=== PATIENT | female | born 1995 | race Caucasian/White ===

== ENCOUNTER 2016-11-27 00:11 | Emergency (ER) | payer BC, OTHER ==
[2016-11-27 00:18] VITALS: BP 116/64; PULSE 79; RESP 16; TEMP 97.7
--- NOTE | 2016-11-27 01:13 | ED ---
Lower Extremity Injury HPI - General Chief Complaint: Extremity Injury, Lower Stated Complaint: foot pain Time Seen by Provider: 11/27/16 00:23 Source: patient, RN notes reviewed, old records reviewed Mode of arrival: ambulatory Limitations: no limitations - History of Present Illness Initial Comments: Patient is a 21 year old female with one day of right foot pain after smashing her foot in a fold up chair. She states that she is able to bear weight on it. She states there is bruising over the medial aspect of the foot, she denies any ankle pain, decreased range of motion in her foot or ankle. She denies any previous injury to the right foot. She denies any peripheral parestheisas. Pain is a 4/10 with palpation. She states she put ice on it prior to arriving to ER. - Related Data Home Medications Medication Instructions Recorded Confirmed No Known Home Medications [No 04/07/16 07/24/16 Known Home Medications] Allergies Allergy/AdvReac Type Severity Reaction Status Date / Time cephalexin monohydrate Allergy Nausea & Verified 11/27/16 00:18 [From Keflex] Vomiting venom-honey bee Allergy Unknown Verified 11/27/16 00:18 [bee venom (honey bee)] Review of Systems ROS Statement: Those systems with pertinent positive or pertinent negative responses have been documented in the HPI. ROS Other: All systems not noted in ROS Statement are negative. Past Medical History Past Medical History: Asthma Additional Past Medical History / Comment(s): BACK PAIN, KIDNEY INFECTIONS, HEART MURMUR, ovarian cysts, History of Any Multi-Drug Resistant Organisms: None Reported Past Surgical History: Section Past Psychological History: Anxiety, Bipolar, Depression Smoking Status: Current some day smoker Past Alcohol Use History: None Reported Past Drug Use History: None Reported General Exam - General Exam Comments Initial Comments: Well appearing 21 year old female no distress. Limitations: no limitations General appearance: alert, in no apparent distress Head exam: Present: atraumatic, normocephalic, normal inspection Eye exam: Present: normal appearance, PERRL, EOMI. Absent: scleral icterus, conjunctival injection, periorbital swelling ENT exam: Present: normal exam, mucous membranes moist Neck exam: Present: normal inspection. Absent: tenderness, meningismus, lymphadenopathy Respiratory exam: Present: normal lung sounds bilaterally. Absent: respiratory distress, wheezes, rales, rhonchi, stridor Cardiovascular Exam: Present: regular rate, normal rhythm, normal heart sounds. Absent: systolic murmur, diastolic murmur, rubs, gallop, clicks GI/Abdominal exam: Present: soft, normal bowel sounds. Absent: distended, tenderness, guarding, rebound, rigid Extremities exam: Present: normal inspection, full ROM, normal capillary refill , other (tender to palpation over medial sole of right foot. Patient has no swellng or bruising. ). Absent: tenderness, pedal edema, joint swelling, calf tenderness Back exam: Present: normal inspection Neurological exam: Present: alert, oriented X3, CN II-XII intact Psychiatric exam: Present: normal affect, normal mood Skin exam: Present: warm, dry, intact, normal color. Absent: rash Course Vital Signs 11/27/16 00:14 Temperature 97.7 F Pulse Rate 79 Respiratory 16 Rate Blood Pressure 116/64 O2 Sat by Pulse 100 Oximetry Medical Decision Making - Medical Decision Making Patient is a 21 year old female wiht right foot pain after is smalshed between a folding chair. Xray shows no fracture. Patient is able to bear weight on her foot. Patient given Fer wrap and needs to follow up with ortho if symptoms persist. Return parameters discussed. Advised to elevate, ice, and rest extremity and to take antiinflamatory medication. - Radiology Data Radiology results: report reviewed No fracture or dislocation. Disposition Clinical Impression: Contusion of right foot Disposition: HOME SELF-CARE Condition: Good Instructions: Foot Contusion (ED) Additional Instructions: Patient started take Motrin Tylenol for pain. Apply ice over the area. Return emergency department if any worsening signs or symptoms occur. Follow-up with orthopedic symptoms continue persist. Referrals: Ld Peace DO [Primary Care Provider] - 1-2 days Time of Disposition: 01:13
--- NOTE | 2016-11-27 01:15 | XR ---
Exam: RIGHT FOOT, 3 views INDICATION: 21-year-old female with pain. COMPARISON: None. FINDINGS: 3 views of the right foot are obtained. Bony structures are intact. Bone mineralization is within normal limits. Joint spaces are preserved. Soft tissues within normal limits. No radio-opaque foreign bodies. IMPRESSION: No acute fracture or subluxation identified.
== END 2016-11-27 01:20 | disposition home or self-care (01) ==
LOC: EC 00:11
DX: S90.31XA Contusion of right foot, initial encounter (principal); F17.200 Nicotine dependence, unspecified, uncomplicated; Z88.1 Allergy status to other antibiotic agents; Z91.030 Bee allergy status; W23.0XXA Caught, crushed, jammed, or pinched between moving objects, initial encounter
CPT/HCPCS: 99284

== ENCOUNTER 2017-01-04 02:32 | Emergency (ER) | payer BC, OTHER ==
[2017-01-04 02:44] VITALS: BP 107/65; PULSE 63; RESP 18; TEMP 97.6
== END 2017-01-04 02:55 | disposition home or self-care (01) ==
LOC: EC 02:32
DX: Z02.89 Encounter for other administrative examinations (principal)

== ENCOUNTER 2017-03-13 03:01 | Emergency (ER) | payer SELFPAY ==
[2017-03-13 03:07] VITALS: BP 122/84; PULSE 71; RESP 18; TEMP 98.7
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
--- NOTE | 2017-03-13 03:44 | XR ---
EXAM: XR Right Hand Complete, 3 or More Views CLINICAL HISTORY: Reason: Pain TECHNIQUE: Frontal, lateral and oblique views of the right hand. COMPARISON: No relevant prior studies available. FINDINGS: Bones/joints: Unremarkable. No acute fracture. No dislocation. Soft tissues: Unremarkable. No radiopaque foreign body. IMPRESSION: No significant bone or joint abnormalities.
== END 2017-03-13 03:49 | disposition home or self-care (01) ==
LOC: EC 03:01
DX: S60.221A Contusion of right hand, initial encounter (principal); F17.200 Nicotine dependence, unspecified, uncomplicated; Z88.1 Allergy status to other antibiotic agents; Z91.030 Bee allergy status; W22.09XA Striking against other stationary object, initial encounter
CPT/HCPCS: 99283

== ENCOUNTER 2017-04-04 16:17 | Emergency (ER) | payer OTHER ==
[2017-04-04 16:25] VITALS: BP 123/74; PULSE 63; RESP 18; TEMP 99.9
[2017-04-04] MEDS ORDERED: KETOROLAC 30 MG/ML 1 ML VIAL IVP STA (17:10)
[2017-04-04] MEDS ORDERED: SODIUM CHLORIDE 0.9% 1,000 ML IV STA (17:10)
--- NOTE | 2017-04-04 17:13 | ED ---
General Adult HPI - General Chief complaint: Vaginal Bleeding Stated complaint: Vaginal Bleeding Source: patient, RN notes reviewed Mode of arrival: ambulatory Limitations: no limitations - History of Present Illness Initial comments: 21 yo female presents to the ER with cc of vaginal bleeding. Patient states that she started her menstrual cycle a few days early. Patient states she's had very heavy bleeding. Patient states that she's gone through overnight pads and tampons and hours. Patient states that she is passing large clots with this. Patient states she is having some pelvic cramping with this as well. Patient does admit to history of heavy periods but states nothing this heavy. Patient denies any use of control. Patient states she hasn't had any fever chills with this patient denies any nausea vomiting. Patient states the pain radiates up her back and down the legs. Patient denies any lightheadedness or dizziness. Patient was concerned due to her symptoms so she thought that she should be evaluated. Patient denies any recent fever, chills, shortness of breath, chest pain, back pain, nausea vomiting, numbness or tingling, dysuria or hematuria, constipation or diarrhea, headaches or visual changes, or any other current symptoms. - Related Data Home Medications Medication Instructions Recorded Confirmed No Known Home Medications [No 03/13/17 04/04/17 Known Home Medications] Allergies Allergy/AdvReac Type Severity Reaction Status Date / Time venom-honey bee Allergy Unknown Verified 03/13/17 03:07 [bee venom (honey bee)] cephalexin monohydrate AdvReac Nausea & Verified 04/04/17 17:06 [From Keflex] Vomiting Review of Systems ROS Statement: Those systems with pertinent positive or pertinent negative responses have been documented in the HPI. ROS Other: All systems not noted in ROS Statement are negative. Past Medical History Past Medical History: Asthma Additional Past Medical History / Comment(s): BACK PAIN, KIDNEY INFECTIONS, HEART MURMUR, ovarian cysts, History of Any Multi-Drug Resistant Organisms: None Reported Past Surgical History: Section Past Psychological History: Anxiety, Bipolar, Depression Smoking Status: Current every day smoker Past Alcohol Use History: None Reported, Occasional Past Drug Use History: Marijuana General Exam - General Exam Comments Initial Comments: General: The patient is awake and alert, in no distress, and does not appear acutely ill. Eye: Pupils are equal, round and reactive to light, extra-ocular movements are intact; there is normal conjunctiva bilaterally. No signs of icterus. Ears, nose, mouth and throat: There are moist mucous membranes. Neck: The neck is supple, there is no tenderness. Cardiovascular: There is a regular rate and rhythm. No murmur, rub or gallop is appreciated. Respiratory: Lungs are clear to auscultation, respirations are non-labored, breath sounds are equal. No wheezes, stridor, rales, or rhonchi. Gastrointestinal: Soft, non-distended, non-tender abdomen without masses or organomegaly noted. There is no rebound or guarding present. No CVA tenderness. Bowel sounds are unremarkable. Back: There is no tenderness to palpation in the midline. There is no obvious deformity. No rashes noted. Musculoskeletal: Normal ROM, no tenderness, There is no pedal edema. There is no calf tenderness or swelling. Sensation intact. Pulses equal bilaterally 2+. Neurological: CN II-XII intact, There are no obvious motor or sensory deficits. Coordination appears grossly intact. Speech is normal. Skin: Skin is warm and dry and no rashes or lesions are noted. Psychiatric: Cooperative, appropriate mood & affect, normal judgment. Limitations: no limitations External exam: Present: normal external exam Speculum exam: Present: normal speculum exam, vaginal bleeding (Minimal) By manual exam: Present: normal by manual exam Course Vital Signs 04/04/17 16:20 Temperature 99.9 F H Pulse Rate 63 Respiratory 18 Rate Blood Pressure 123/74 O2 Sat by Pulse 99 Oximetry Medical Decision Making - Medical Decision Making 21-year-old female presents to the emergency department with a chief complaint of vaginal bleeding. At this time patient's pelvic exam essentially increased amount of bleeding and hemoglobin vital signs are stable. This time ultrasound was reviewed and negative. This time we discussed the patient is to follow up with [facility] she is given information. We discussed return parameters and all the questions. She stated that she understood and she is given plan. This time the patient will be discharged. - Lab Data Result diagrams: 04/04/17 17:18 04/04/17 17:18 Lab Results 04/04/17 04/04/17 04/04/17 Range/Units 17:18 17:18 17:18 WBC 8.3 (3.8-10.6) k/uL RBC 4.12 (3.80-5.40) m/uL Hgb 13.6 (11.4-16.0) gm/dL Hct 39.2 (34.0-46.0) % MCV 95.0 (80.0-100.0) fL MCH 33.0 (25.0-35.0) pg MCHC 34.7 (31.0-37.0) g/dL RDW 12.4 (11.5-15.5) % Plt Count 298 (150-450) k/uL Neutrophils % 67 % Lymphocytes % 23 % Monocytes % 4 % Eosinophils % 3 % Basophils % 1 % Neutrophils # 5.6 (1.3-7.7) k/uL Lymphocytes # 1.9 (1.0-4.8) k/uL Monocytes # 0.3 (0-1.0) k/uL Eosinophils # 0.3 (0-0.7) k/uL Basophils # 0.1 (0-0.2) k/uL Sodium 140 (137-145) mmol/L Potassium 3.9 (3.5-5.1) mmol/L Chloride 107 (98-107) mmol/L Carbon Dioxide 25 (22-30) mmol/L Anion Gap 8 mmol/L BUN 15 (7-17) mg/dL Creatinine 0.71 (0.52-1.04) mg/dL Est GFR (MDRD) Af Amer >60 (>60 ml/min/1.73 sqM) Est GFR (MDRD) Non-Af >60 (>60 ml/min/1.73 sqM) Glucose 99 (74-99) mg/dL Calcium 8.9 (8.4-10.2) mg/dL Total Bilirubin 0.6 (0.2-1.3) mg/dL AST 20 (14-36) U/L ALT 17 (9-52) U/L Alkaline Phosphatase 53 (38-126) U/L Total Protein 6.4 (6.3-8.2) g/dL Albumin 3.8 (3.5-5.0) g/dL HCG, Quant <2.4 mIU/mL Urine Color Urine Appearance (Clear) Urine pH (5.0-8.0) Ur Specific [place] (1.001-1.035) Urine Protein (Negative) Urine Glucose (UA) (Negative) Urine Ketones (Negative) Urine Blood (Negative) Urine Nitrite (Negative) Urine Bilirubin (Negative) Urine Urobilinogen (<2.0) mg/dL Ur Leukocyte Esterase (Negative) Urine RBC (0-5) /hpf Urine WBC (0-5) /hpf Ur Squamous Epith Cells (0-4) /hpf Urine Mucus (None) /hpf Blood Type O Positive Blood Type Recheck No Antibody Screen NEGATIVE Spec Expiration Date 04/07/2017231704/04/17 Range/Units 17:18 WBC (3.8-10.6) k/uL RBC (3.80-5.40) m/uL Hgb (11.4-16.0) gm/dL Hct (34.0-46.0) % MCV (80.0-100.0) fL MCH (25.0-35.0) pg MCHC (31.0-37.0) g/dL RDW (11.5-15.5) % Plt Count (150-450) k/uL Neutrophils % % Lymphocytes % % Monocytes % % Eosinophils % % Basophils % % Neutrophils # (1.3-7.7) k/uL Lymphocytes # (1.0-4.8) k/uL Monocytes # (0-1.0) k/uL Eosinophils # (0-0.7) k/uL Basophils # (0-0.2) k/uL Sodium (137-145) mmol/L Potassium (3.5-5.1) mmol/L Chloride (98-107) mmol/L Carbon Dioxide (22-30) mmol/L Anion Gap mmol/L BUN (7-17) mg/dL Creatinine (0.52-1.04) mg/dL Est GFR (MDRD) Af Amer (>60 ml/min/1.73 sqM) Est GFR (MDRD) Non-Af (>60 ml/min/1.73 sqM) Glucose (74-99) mg/dL Calcium (8.4-10.2) mg/dL Total Bilirubin (0.2-1.3) mg/dL AST (14-36) U/L ALT (9-52) U/L Alkaline Phosphatase (38-126) U/L Total Protein (6.3-8.2) g/dL Albumin (3.5-5.0) g/dL HCG, Quant mIU/mL Urine Color Yellow Urine Appearance Cloudy H (Clear) Urine pH 5.5 (5.0-8.0) Ur Specific [place] 1.023 (1.001-1.035) Urine Protein Trace H (Negative) Urine Glucose (UA) Negative (Negative) Urine Ketones Negative (Negative) Urine Blood Moderate H (Negative) Urine Nitrite Positive H (Negative) Urine Bilirubin Negative (Negative) Urine Urobilinogen 2.0 (<2.0) mg/dL Ur Leukocyte Esterase Trace H (Negative) Urine RBC >182 H (0-5) /hpf Urine WBC 7 H (0-5) /hpf Ur Squamous Epith Cells 1 (0-4) /hpf Urine Mucus Rare H (None) /hpf Blood Type Blood Type Recheck Antibody Screen Spec Expiration Date - Radiology Data Radiology results: report reviewed, image reviewed Disposition Clinical Impression: Dysfunctional uterine bleeding Disposition: HOME SELF-CARE Condition: Stable Instructions: Dysfunctional Uterine Bleeding (ED) Additional Instructions: Please use medication as discussed. Please follow up with family doctor if symptoms have not improved over the next two days. Please return to the emergency room if your symptoms increase or worsen or for any other concerns. Referrals: Bindu Liao MD [STAFF PHYSICIAN] - 1-2 days Time of Disposition: 18:56
[2017-04-04 17:32] LABS: Basophils # (A) 0.1 k/uL (0-0.2); Basophils % (A) 1 %; CH 32.7; CHCM 34.6; Eosinophils # (A) 0.3 k/uL (0-0.7); Eosinophils % (A) 3 %; HCT 39.2 % (34.0-46.0); HDW 2.58; HGB 13.6 gm/dL (11.4-16.0); Luc # (Auto) 0.17; Luc % (Auto) 2; Lymphocytes # (A) 1.9 k/uL (1.0-4.8); Lymphocytes % (A) 23 %; MCHC 34.7 g/dL (31.0-37.0); Mean Platelet Volume 6.9; Monocytes # (A) 0.3 k/uL (0-1.0); Monocytes % (A) 4 %; Neutrophils # (A) 5.6 k/uL (1.3-7.7); Neutrophils % (A) 67 %; RBC 4.12 m/uL (3.80-5.40); RDW 12.4 % (11.5-15.5); WBC 8.3 k/uL (3.8-10.6)
[2017-04-04 17:35] LABS: Appearance,Urine Cloudy (Clear); Bilirubin,Urine Negative (Negative); Glucose,Urine (UA) Negative (Negative); Ketones,Urine Negative (Negative); Leukocyte Esterase,Urine Trace (Negative); Mucus,Urine Rare /hpf; Nitrite,Urine Positive (Negative); PH, Urine 5.5 (5.0-8.0); Particle Count 4472; Protein,Urine Trace (Negative); RBC,Urine >182 /hpf (0-5); Specific Gravity,Urine 1.023 (1.001-1.035); Squamous Epithelial Cell,Urine 1 /hpf (0-4); UA Billing (MACRO vs. MICRO) MICRO; WBC,Urine 7 /hpf (0-5)
[2017-04-04 17:43] LABS: ALT 17 U/L (9-52); AST 20 U/L (14-36); Alkaline Phosphatase 53 U/L (38-126); Anion Gap 8 mmol/L; Blood Urea Nitrogen 15 mg/dL (7-17); Calcium 8.9 mg/dL (8.4-10.2); Carbon Dioxide 25 mmol/L (22-30); Chloride 107 mmol/L (98-107); Glucose 99 mg/dL (74-99); Non-African American GFR(MDRD) >60 (>60 ml/min/1.73 sqM); Potassium 3.9 mmol/L (3.5-5.1); Sodium 140 mmol/L (137-145); Total Bilirubin 0.6 mg/dL (0.2-1.3); Total Protein 6.4 g/dL (6.3-8.2)
[2017-04-04 17:58] LABS: HCG,Quantitative Serum <2.4 mIU/mL
--- NOTE | 2017-04-04 18:43 | US ---
EXAMINATION TYPE: US transvaginal DATE OF EXAM: 04/04/2017 COMPARISON: NONE CLINICAL HISTORY: Pain. Abnormal bleeding TECHNIQUE: Transvaginal (TV) Date of LMP: 03/08/2017 EXAM MEASUREMENTS: Uterus: 7.4 x 4.3 x 5.6 cm Endometrial Stripe: 0.63 cm Right Ovary: 4.5 x 2.8 3.1 cm Left Ovary: 4.1 x 2.1 x 2.2 cm 1. Uterus: Retroverted 2. Endometrium: wnl 3. Right Ovary: Anechoic srea seen measuring 4.0 x 2.0 x 2.1cm 4. Left Ovary: wnl Spectral, color and waveform doppler imaging shows good arterial and venous flow within the ovaries ; there is no evidence for ovarian torsion. 5. Bilateral Adnexa: wnl 6. Posterior cul-de-sac: wnl IMPRESSION: No evidence of ovarian torsion. Simple cysts are present on the left and right ovary. The re is a dominant right ovarian cyst. Normal uterus and endometrium.
== END 2017-04-04 19:22 | disposition home or self-care (01) ==
LOC: EC 16:17
DX: N93.8 Other specified abnormal uterine and vaginal bleeding (principal); Z87.42 Personal history of other diseases of the female genital tract; F17.200 Nicotine dependence, unspecified, uncomplicated; Z98.890 Other specified postprocedural states; Z88.1 Allergy status to other antibiotic agents; Z91.030 Bee allergy status
CPT/HCPCS: 36415; 86900; 86901; 80053; 85025; 86850; 81001; 84702; 93975; 76830; 99284; 96374; 96361 ×2; J1885; 76856; 93976

== ENCOUNTER 2017-05-23 21:01 | Emergency (ER) | payer OTHER ==
[2017-05-23] MEDS ORDERED: IPRATROPIUM 0.5 MG/2.5 ML NEBU INHALATION STA (21:41)
[2017-05-23] MEDS ORDERED: SODIUM CHLORIDE 0.9% 1,000 ML IV STA (21:41)
[2017-05-23] MEDS ORDERED: AZITHROMYCIN 500 MG in SODIUM CHLORIDE 0.9% 250 ML IVPB STA (21:41)
[2017-05-23] MEDS ORDERED: methylPREDNISolone SOD SUCCI 125 MG/2 ML VIAL IV STA (21:41)
[2017-05-23] MEDS ORDERED: ALBUTEROL NEBULIZED 2.5 MG/3 ML INHALATION STA (21:41)
[2017-05-23] MEDS ORDERED: SODIUM CHLORIDE 0.9% 500 ML IV STA (21:41)
[2017-05-23] MEDS ORDERED: KETOROLAC 30 MG/ML 1 ML VIAL IVP STA (21:42)
[2017-05-23] MEDS ORDERED: MORPHINE SULFATE 2 MG/ML SYRINGE IVP ONE (21:42)
--- NOTE | 2017-05-23 21:51 | XR ---
EXAMINATION TYPE: XR chest 2V DATE OF EXAM: 05/23/2017 COMPARISON: 04/07/2016 HISTORY: Difficulty breathing TECHNIQUE: Frontal and lateral views of the chest are obtained. FINDINGS: There is no focal air space opacity, pleural effusion, or pneumothorax seen. The cardiac silhouette size is within normal limits. The osseous structures are intact. IMPRESSION: No acute cardiopulmonary process.
[2017-05-23 21:55] LABS: Basophils # (A) 0.1 k/uL (0-0.2); Basophils % (A) 1 %; CH 32.2; CHCM 34.7; Eosinophils # (A) 0.5 k/uL (0-0.7); Eosinophils % (A) 4 %; HCT 40.9 % (34.0-46.0); HDW 2.59; HGB 14.4 gm/dL (11.4-16.0); Luc # (Auto) 0.18; Luc % (Auto) 1; Lymphocytes # (A) 2.1 k/uL (1.0-4.8); Lymphocytes % (A) 17 %; MCH 32.9 pg (25.0-35.0); MCHC 35.3 g/dL (31.0-37.0); MCV 93.3 fL (80.0-100.0); Mean Platelet Volume 6.8; Monocytes # (A) 0.4 k/uL (0-1.0); Monocytes % (A) 4 %; Neutrophils # (A) 9.3 k/uL (1.3-7.7); Neutrophils % (A) 74 %; RBC 4.38 m/uL (3.80-5.40); RDW 12.3 % (11.5-15.5); WBC 12.5 k/uL (3.8-10.6); WBC (Perox) 12.92
[2017-05-23 22:05] LABS: Partial Thromboplastin Time 27.2 sec (22.0-30.0); Prothrombin Time 10.3 sec (9.0-12.0)
[2017-05-23 22:07] LABS: ALT 23 U/L (9-52); AST 22 U/L (14-36); Alkaline Phosphatase 64 U/L (38-126); Anion Gap 11 mmol/L; Blood Urea Nitrogen 15 mg/dL (7-17); Calcium 9.1 mg/dL (8.4-10.2); Carbon Dioxide 20 mmol/L (22-30); Chloride 110 mmol/L (98-107); Glucose 92 mg/dL (74-99); Magnesium 1.8 mg/dL (1.6-2.3); Non-African American GFR(MDRD) >60 (>60 ml/min/1.73 sqM); Sodium 141 mmol/L (137-145); Total Bilirubin 0.5 mg/dL (0.2-1.3); Total Protein 6.9 g/dL (6.3-8.2)
[2017-05-23 22:18] LABS: Creatine Kinase 87 U/L (30-135)
[2017-05-23 22:21] VITALS: RESP 18
[2017-05-23 22:31] LABS: Creatine Kinase MB 0.9 ng/mL (0.0-2.4); Troponin I <0.012 ng/mL (0.000-0.034)
--- NOTE | 2017-05-23 22:31 | ED ---
General Adult HPI - General Chief complaint: Shortness of Breath Stated complaint: Diff Breathing Time Seen by Provider: 05/23/17 21:28 Source: patient, RN notes reviewed, old records reviewed Mode of arrival: ambulatory Limitations: no limitations - History of Present Illness Initial comments: This is a 21-year-old female olio short of breath. Patient has no chest pain. Patient does have increased cough and congestion 2-3 days with. Symptoms are worsening. She has no medications at home and stopped having asthma exacerbations about 2 years ago. Patient admits to continued smoking although minimally. Extremities show she denies sick contacts - Related Data Previous Rx's Medication Instructions Recorded Albuterol Sulfate [Proair Hfa] 1 - 2 puff INHALATION Q4H PRN #1 05/23/17 inhaler Azithromycin [Zithromax Z-pack] 0 mg PO DIRECTED #6 tab 05/23/17 predniSONE 50 mg PO DAILY #5 tab 05/23/17 Allergies Allergy/AdvReac Type Severity Reaction Status Date / Time venom-honey bee Allergy Unknown Verified 05/23/17 21:23 [bee venom (honey bee)] cephalexin monohydrate AdvReac Nausea & Verified 05/23/17 21:23 [From Keflex] Vomiting Review of Systems ROS Statement: Those systems with pertinent positive or pertinent negative responses have been documented in the HPI. ROS Other: All systems not noted in ROS Statement are negative. Past Medical History Past Medical History: Asthma Additional Past Medical History / Comment(s): BACK PAIN, KIDNEY INFECTIONS, HEART MURMUR, ovarian cysts, History of Any Multi-Drug Resistant Organisms: None Reported Past Surgical History: Section Past Psychological History: Anxiety, Bipolar, Depression Smoking Status: Current every day smoker Past Alcohol Use History: Occasional Past Drug Use History: None Reported General Exam Limitations: no limitations General appearance: alert, in no apparent distress Head exam: Present: atraumatic, normocephalic, normal inspection Eye exam: Present: normal appearance, PERRL, EOMI. Absent: scleral icterus, conjunctival injection, periorbital swelling ENT exam: Present: normal exam, mucous membranes moist Neck exam: Present: normal inspection. Absent: tenderness, meningismus, lymphadenopathy Respiratory exam: Present: normal lung sounds bilaterally. Absent: respiratory distress, wheezes, rales, rhonchi, stridor Cardiovascular Exam: Present: regular rate, normal rhythm, normal heart sounds. Absent: systolic murmur, diastolic murmur, rubs, gallop, clicks GI/Abdominal exam: Present: soft, normal bowel sounds. Absent: distended, tenderness, guarding, rebound, rigid Extremities exam: Present: normal inspection, full ROM, normal capillary refill. Absent: tenderness, pedal edema, joint swelling, calf tenderness Back exam: Present: normal inspection Neurological exam: Present: alert, oriented X3, CN II-XII intact Psychiatric exam: Present: normal affect, normal mood Skin exam: Present: warm, dry, intact, normal color. Absent: rash Course Vital Signs 05/23/17 05/23/17 05/23/17 21:04 22:06 22:20 Temperature 97.8 F Pulse Rate 114 H 78 67 Respiratory 20 18 Rate Blood Pressure 121/76 111/59 O2 Sat by Pulse 97 100 Oximetry 05/23/17 05/23/17 05/23/17 22:23 22:57 23:32 Temperature Pulse Rate 66 76 90 Respiratory Rate Blood Pressure O2 Sat by Pulse Oximetry 05/24/17 00:03 Temperature 98.4 F Pulse Rate 108 H Respiratory 18 Rate Blood Pressure 103/56 O2 Sat by Pulse 97 Oximetry - Reevaluation(s) Reevaluation #1: Symptoms are improved, resolved EKG Findings - EKG Comments: EKG Findings:: EKG shows normal sinus overdoses A, [place] 144, QRS 76, QTC 396 Medical Decision Making - Medical Decision Making 21 year old female at ER for evaluation. Patient has history of smoking, positive asthma. Improved with the treatments x-ray negative and can be discharged home - Lab Data Result diagrams: 05/23/17 21:30 05/23/17 21:30 Lab Results 05/23/17 05/23/17 05/23/17 Range/Units 21:30 21:30 21:30 WBC 12.5 H (3.8-10.6) k/uL RBC 4.38 (3.80-5.40) m/uL Hgb 14.4 (11.4-16.0) gm/dL Hct 40.9 (34.0-46.0) % MCV 93.3 (80.0-100.0) fL MCH 32.9 (25.0-35.0) pg MCHC 35.3 (31.0-37.0) g/dL RDW 12.3 (11.5-15.5) % Plt Count 348 (150-450) k/uL Neutrophils % 74 % Lymphocytes % 17 % Monocytes % 4 % Eosinophils % 4 % Basophils % 1 % Neutrophils # 9.3 H (1.3-7.7) k/uL Lymphocytes # 2.1 (1.0-4.8) k/uL Monocytes # 0.4 (0-1.0) k/uL Eosinophils # 0.5 (0-0.7) k/uL Basophils # 0.1 (0-0.2) k/uL PT (9.0-12.0) sec INR (<1.2) APTT (22.0-30.0) sec Sodium 141 (137-145) mmol/L Potassium 4.0 (3.5-5.1) mmol/L Chloride 110 H (98-107) mmol/L Carbon Dioxide 20 L (22-30) mmol/L Anion Gap 11 mmol/L BUN 15 (7-17) mg/dL Creatinine 0.70 (0.52-1.04) mg/dL Est GFR (MDRD) Af Amer >60 (>60 ml/min/1.73 sqM) Est GFR (MDRD) Non-Af >60 (>60 ml/min/1.73 sqM) Glucose 92 (74-99) mg/dL Calcium 9.1 (8.4-10.2) mg/dL Magnesium 1.8 (1.6-2.3) mg/dL Total Bilirubin 0.5 (0.2-1.3) mg/dL AST 22 (14-36) U/L ALT 23 (9-52) U/L Alkaline Phosphatase 64 (38-126) U/L Total Creatine Kinase 87 (30-135) U/L CK-MB (CK-2) 0.9 (0.0-2.4) ng/mL CK-MB (CK-2) Rel Index 1.0 Troponin I <0.012 (0.000-0.034) ng/mL NT-Pro-B Natriuret Pep pg/mL Total Protein 6.9 (6.3-8.2) g/dL Albumin 4.1 (3.5-5.0) g/dL 05/23/17 05/23/17 Range/Units 21:30 21:30 WBC (3.8-10.6) k/uL RBC (3.80-5.40) m/uL Hgb (11.4-16.0) gm/dL Hct (34.0-46.0) % MCV (80.0-100.0) fL MCH (25.0-35.0) pg MCHC (31.0-37.0) g/dL RDW (11.5-15.5) % Plt Count (150-450) k/uL Neutrophils % % Lymphocytes % % Monocytes % % Eosinophils % % Basophils % % Neutrophils # (1.3-7.7) k/uL Lymphocytes # (1.0-4.8) k/uL Monocytes # (0-1.0) k/uL Eosinophils # (0-0.7) k/uL Basophils # (0-0.2) k/uL PT 10.3 (9.0-12.0) sec INR 1.0 (<1.2) APTT 27.2 (22.0-30.0) sec Sodium (137-145) mmol/L Potassium (3.5-5.1) mmol/L Chloride (98-107) mmol/L Carbon Dioxide (22-30) mmol/L Anion Gap mmol/L BUN (7-17) mg/dL Creatinine (0.52-1.04) mg/dL Est GFR (MDRD) Af Amer (>60 ml/min/1.73 sqM) Est GFR (MDRD) Non-Af (>60 ml/min/1.73 sqM) Glucose (74-99) mg/dL Calcium (8.4-10.2) mg/dL Magnesium (1.6-2.3) mg/dL Total Bilirubin (0.2-1.3) mg/dL AST (14-36) U/L ALT (9-52) U/L Alkaline Phosphatase (38-126) U/L Total Creatine Kinase (30-135) U/L CK-MB (CK-2) (0.0-2.4) ng/mL CK-MB (CK-2) Rel Index Troponin I (0.000-0.034) ng/mL NT-Pro-B Natriuret Pep 91 pg/mL Total Protein (6.3-8.2) g/dL Albumin (3.5-5.0) g/dL Disposition Clinical Impression: Viral syndrome, Bronchitis, acute Disposition: HOME SELF-CARE Condition: Good Instructions: Acute Bronchitis (ED) Prescriptions: Albuterol Sulfate [Proair Hfa] 1 - 2 puff INHALATION Q4H PRN #1 inhaler PRN Reason: Shortness Of Breath Azithromycin [Zithromax Z-pack] 0 mg PO DIRECTED #6 tab predniSONE 50 mg PO DAILY #5 tab Referrals: None,Stated [Primary Care Provider] - 1-2 days
[2017-05-24 00:04] VITALS: BP 103/56; PULSE 108; TEMP 98.4
== END 2017-05-24 00:20 | disposition home or self-care (01) ==
LOC: EC 21:01
DX: B34.9 Viral infection, unspecified (principal); J20.9 Acute bronchitis, unspecified; J45.909 Unspecified asthma, uncomplicated; F17.200 Nicotine dependence, unspecified, uncomplicated; Z88.1 Allergy status to other antibiotic agents; Z91.030 Bee allergy status
CPT/HCPCS: 36415; 94644; 93005; 83880; 80053; 82550; 82553; 83735; 84484; 85025; 85610; 85730; 71020; 99285; 96365; 96366; 96375 ×3; J2930; J0456; J1885; J2270

== ENCOUNTER 2017-10-22 21:31 | Emergency (ER) | payer BC ==
[2017-10-22 23:51] LABS: Appearance,Urine Clear (Clear); Bilirubin,Urine Negative (Negative); Blood,Urine Negative (Negative); Color,Urine Yellow; Glucose,Urine (UA) Negative (Negative); Ketones,Urine Negative (Negative); Leukocyte Esterase,Urine Moderate (Negative); Mucus,Urine Rare /hpf; Nitrite,Urine Negative (Negative); Protein,Urine Trace (Negative); RBC,Urine 3 /hpf (0-5); Specific Gravity,Urine 1.022 (1.001-1.035); Squamous Epithelial Cell,Urine 8 /hpf (0-4); Urobilinogen,Urine <2.0 mg/dL (<2.0); WBC,Urine 28 /hpf (0-5)
[2017-10-23 00:11] LABS: Basophils % (A) 0 %; Eosinophils # (A) 0.4 k/uL (0-0.7); Eosinophils % (A) 3 %; HCT 37.1 % (34.0-46.0); HGB 12.8 gm/dL (11.4-16.0); Lymphocytes # (A) 2.8 k/uL (1.0-4.8); Lymphocytes % (A) 21 %; MCH 31.7 pg (25.0-35.0); MCHC 34.4 g/dL (31.0-37.0); MCV 92.1 fL (80.0-100.0); Mean Platelet Volume 6.9; Monocytes # (A) 0.6 k/uL (0-1.0); Monocytes % (A) 5 %; Neutrophils # (A) 9.5 k/uL (1.3-7.7); Neutrophils % (A) 70 %; Platelet Count 296 k/uL (150-450); RBC 4.03 m/uL (3.80-5.40); WBC 13.5 k/uL (3.8-10.6)
[2017-10-23 00:19] LABS: ALT 7 U/L (9-52); AST 14 U/L (14-36); Albumin 3.4 g/dL (3.5-5.0); Alkaline Phosphatase 50 U/L (38-126); Anion Gap 9 mmol/L; Blood Urea Nitrogen 16 mg/dL (7-17); Calcium 8.8 mg/dL (8.4-10.2); Carbon Dioxide 21 mmol/L (22-30); Chloride 106 mmol/L (98-107); Glucose 90 mg/dL (74-99); Potassium 3.9 mmol/L (3.5-5.1); Sodium 136 mmol/L (137-145); Total Bilirubin 0.2 mg/dL (0.2-1.3)
--- NOTE | 2017-10-23 00:23 | ED ---
Abdominal Pain HPI - General Chief Complaint: Abdominal Pain Stated Complaint: 14wks ,fall Time Seen by Provider: 10/22/17 23:00 Source: patient Mode of arrival: ambulatory Limitations: no limitations - History of Present Illness Initial Comments: Patient is a 22-year-old female presenting for abdominal pain. Patient states that she has been 6 times prior and has 2 living children and that she is currently 14 weeks based on ultrasound. Patient complains of lower abdominal cramping but no vaginal bleeding that started after she slipped and fell on the ice face first landing on her chest and abdomen. She denies any nausea/vomiting/diarrhea as well as urinary complaints and wanted to come to the emergency department for further evaluation - Related Data Home Medications Medication Instructions Recorded Confirmed No Known Home Medications [No 08/16/17 08/16/17 Known Home Medications] Allergies Allergy/AdvReac Type Severity Reaction Status Date / Time venom-honey bee Allergy Anaphylaxis Verified 10/22/17 21:48 [bee venom (honey bee)] cephalexin monohydrate AdvReac Nausea & Verified 10/22/17 21:48 [From Keflex] Vomiting Review of Systems ROS Statement: Those systems with pertinent positive or pertinent negative responses have been documented in the HPI. Constitutional: Negative for chills, fatigue and fever. HENT: Negative for congestion. Respiratory: Negative for chest tightness, shortness of breath and wheezing. Cardiovascular: Negative for chest pain and palpitations. Gastrointestinal: Positive for abdominal pain. Negative for abdominal distention , diarrhea, nausea and vomiting. Genitourinary: Negative for dysuria. Negative for vaginal bleeding Musculoskeletal: Negative for back pain, neck pain and neck stiffness. Skin: Negative for color change. Neurological: Negative for dizziness, speech difficulty, weakness and light- headedness. Psychiatric/Behavioral: Negative for agitation and confusion. The patient is not nervous/anxious. ROS Other: All systems not noted in ROS Statement are negative. Past Medical History Past Medical History: Asthma Additional Past Medical History / Comment(s): BACK PAIN, KIDNEY INFECTIONS, HEART MURMUR, ovarian cysts, History of Any Multi-Drug Resistant Organisms: None Reported Past Surgical History: Section Past Psychological History: Anxiety, Bipolar, Depression Smoking Status: Current every day smoker Past Alcohol Use History: None Reported Past Drug Use History: None Reported General Exam - General Exam Comments Initial Comments: Physical Exam Constitutional: Pt is oriented to person, place, and time. Pt appears well- developed and well-nourished. No distress. HENT: Head: Normocephalic and atraumatic. Eyes: EOM are normal. Neck: Normal range of motion. Neck supple. Cardiovascular: Normal rate, regular rhythm, S1 normal, S2 normal and normal heart sounds. Exam reveals no gallop and no friction rub. No murmur heard. Pulmonary/Chest: Effort normal and breath sounds normal. No tachypnea and no bradypnea. No respiratory distress. No wheezes or rales noted. Abdominal: Soft. Bowel sounds are normal. Pt exhibits no shifting dullness, no distension, no pulsatile liver, no fluid wave, no abdominal bruit and no ascites. There is no tenderness. There is no rigidity, no rebound, no guarding, no tenderness at McBurney's point and negative Ohara's sign. Musculoskeletal: Normal range of motion. Neurological: Pt is alert and oriented to person, place, and time. No cranial nerve deficit. Skin: Skin is warm and dry. No rash noted. Pt is not diaphoretic. No erythema. No pallor. Psychiatric: Pt has a normal mood and affect. Pt behavior is normal. Thought content normal. Limitations: no limitations Course Vital Signs 10/22/17 21:44 Temperature 99.0 F Pulse Rate 97 Respiratory 18 Rate Blood Pressure 131/64 O2 Sat by Pulse 98 Oximetry Medical Decision Making - Medical Decision Making Laboratory studies revealed electrolytes were relatively within normal limits and heart tones bedside could not be heard. Therefore transvaginal ultrasound was completed and showed that there was a viable fetus with a heart rate greater than 150 bpm. Patient did not experience any vaginal bleeding but was advised to return if this occurred. Additionally, she was advised to follow -up with OB doctor in the next 1-2 days. Her urine sample also showed that there was 28 wbc's but there is also 8 squamous epithelial cells and therefore is felt that this could possibly be a contamination. However, urine culture was obtained and sent and pending. Patient is agreeable to plan and noted to be resting very comfortably prior to discharge. - Lab Data Result diagrams: 10/22/17 23:25 10/22/17 23:25 Lab Results 10/22/17 10/22/17 10/22/17 Range/Units 23:25 23:25 23:25 WBC 13.5 H (3.8-10.6) k/uL RBC 4.03 (3.80-5.40) m/uL Hgb 12.8 (11.4-16.0) gm/dL Hct 37.1 (34.0-46.0) % MCV 92.1 (80.0-100.0) fL MCH 31.7 (25.0-35.0) pg MCHC 34.4 (31.0-37.0) g/dL RDW 13.0 (11.5-15.5) % Plt Count 296 (150-450) k/uL Neutrophils % 70 % Lymphocytes % 21 % Monocytes % 5 % Eosinophils % 3 % Basophils % 0 % Neutrophils # 9.5 H (1.3-7.7) k/uL Lymphocytes # 2.8 (1.0-4.8) k/uL Monocytes # 0.6 (0-1.0) k/uL Eosinophils # 0.4 (0-0.7) k/uL Basophils # 0.0 (0-0.2) k/uL Sodium (137-145) mmol/L Potassium (3.5-5.1) mmol/L Chloride (98-107) mmol/L Carbon Dioxide (22-30) mmol/L Anion Gap mmol/L BUN (7-17) mg/dL Creatinine (0.52-1.04) mg/dL Est GFR (MDRD) Af Amer (>60 ml/min/1.73 sqM) Est GFR (MDRD) Non-Af (>60 ml/min/1.73 sqM) Glucose (74-99) mg/dL Calcium (8.4-10.2) mg/dL Total Bilirubin (0.2-1.3) mg/dL AST (14-36) U/L ALT (9-52) U/L Alkaline Phosphatase (38-126) U/L Total Protein (6.3-8.2) g/dL Albumin (3.5-5.0) g/dL Urine Color Yellow Urine Appearance Clear (Clear) Urine pH 6.0 (5.0-8.0) Ur Specific [place] 1.022 (1.001-1.035) Urine Protein Trace H (Negative) Urine Glucose (UA) Negative (Negative) Urine Ketones Negative (Negative) Urine Blood Negative (Negative) Urine Nitrite Negative (Negative) Urine Bilirubin Negative (Negative) Urine Urobilinogen <2.0 (<2.0) mg/dL Ur Leukocyte Esterase Moderate H (Negative) Urine RBC 3 (0-5) /hpf Urine WBC 28 H (0-5) /hpf Ur Squamous Epith Cells 8 H (0-4) /hpf Urine Mucus Rare H (None) /hpf Blood Type O Positive Blood Type Recheck No Antibody Screen NEGATIVE Spec Expiration Date 10/25/2017 - 232410/22/17 Range/Units 23:25 WBC (3.8-10.6) k/uL RBC (3.80-5.40) m/uL Hgb (11.4-16.0) gm/dL Hct (34.0-46.0) % MCV (80.0-100.0) fL MCH (25.0-35.0) pg MCHC (31.0-37.0) g/dL RDW (11.5-15.5) % Plt Count (150-450) k/uL Neutrophils % % Lymphocytes % % Monocytes % % Eosinophils % % Basophils % % Neutrophils # (1.3-7.7) k/uL Lymphocytes # (1.0-4.8) k/uL Monocytes # (0-1.0) k/uL Eosinophils # (0-0.7) k/uL Basophils # (0-0.2) k/uL Sodium 136 L (137-145) mmol/L Potassium 3.9 (3.5-5.1) mmol/L Chloride 106 (98-107) mmol/L Carbon Dioxide 21 L (22-30) mmol/L Anion Gap 9 mmol/L BUN 16 (7-17) mg/dL Creatinine 0.60 (0.52-1.04) mg/dL Est GFR (MDRD) Af Amer >60 (>60 ml/min/1.73 sqM) Est GFR (MDRD) Non-Af >60 (>60 ml/min/1.73 sqM) Glucose 90 (74-99) mg/dL Calcium 8.8 (8.4-10.2) mg/dL Total Bilirubin 0.2 (0.2-1.3) mg/dL AST 14 (14-36) U/L ALT 7 L (9-52) U/L Alkaline Phosphatase 50 (38-126) U/L Total Protein 6.0 L (6.3-8.2) g/dL Albumin 3.4 L (3.5-5.0) g/dL Urine Color Urine Appearance (Clear) Urine pH (5.0-8.0) Ur Specific [place] (1.001-1.035) Urine Protein (Negative) Urine Glucose (UA) (Negative) Urine Ketones (Negative) Urine Blood (Negative) Urine Nitrite (Negative) Urine Bilirubin (Negative) Urine Urobilinogen (<2.0) mg/dL Ur Leukocyte Esterase (Negative) Urine RBC (0-5) /hpf Urine WBC (0-5) /hpf Ur Squamous Epith Cells (0-4) /hpf Urine Mucus (None) /hpf Blood Type Blood Type Recheck Antibody Screen Spec Expiration Date Disposition Clinical Impression: Abdominal pain affecting Disposition: HOME SELF-CARE Condition: Good Instructions: Abdominal Pain in (ED) Referrals: Ld Peace DO [Primary Care Provider] - 1-2 days Time of Disposition: 01:17
--- NOTE | 2017-10-23 01:05 | US ---
EXAMINATION TYPE: US OB >= 14 wk fetus DATE OF EXAM: 10/23/2017 COMPARISON: None CLINICAL HISTORY: PainFall, pelvic cramping TECHNIQUE: Transabdominal (TA) GESTATIONAL AGE / DATING Physician Established: (13 weeks/6 days) EDC: 04/24/2018 Dates by LMP: (13 weeks/6 days) EDC: 04/24/2018 Dates by First Scan: This is 1st scan Dates by Current Scan: (14 weeks/4 days) EDC: 04/19/2018 SURVEY IUP: Single PLACENTA: Posterior/Fundal PREVIA: No Previa CHELLE: 10.2 cm Normal CERVICAL LENGTH (transabdominal: norm > 3.0cm): 4.1 cm BIOMETRY PRESENTATION: Breech LIE: Transverse with head maternal Right BPD: 2.4 cm 14 weeks / 1 days HC: 9.2 cm 14 weeks / 1 days AC: 7.6 cm 14 weeks / 1 days FL: 1.4 cm 14 weeks / 0 days ESTIMATED WEIGHT IN GRAMS: 89.6 grams ESTIMATED WEIGHT IN LBS/OZ: 0 lbs. 3 oz. WEIGHT PERCENTAGE BASED ON ESTABLISHED DATES: 49% HC/AC: 1.20 Normal FL/AC: 18.02 HEART RATE: 153 bpm RHYTHM: Normal Viable single IUP measuring 14 weeks 4 days with a heart rate of 153bpm and an estimated delivery melecio e of 04/19/2018. IMPRESSION: The ultrasound gestational age is 14 weeks 4 days. I see no complicating process.
[2017-10-23 01:31] VITALS: BP 107/53; PULSE 65; RESP 16; TEMP 98.6
[2017-10-23 01:37] LABS: HCG,Quantitative Serum 69644.8 mIU/mL
== END 2017-10-23 01:31 | disposition home or self-care (01) ==
LOC: EC 21:31
DX: O26.892 Other specified pregnancy related conditions, second trimester (principal); R10.30 Lower abdominal pain, unspecified; O99.332 Smoking (tobacco) complicating pregnancy, second trimester; F17.200 Nicotine dependence, unspecified, uncomplicated; Z3A.14 14 weeks gestation of pregnancy; Z88.1 Allergy status to other antibiotic agents; Z91.030 Bee allergy status
CPT/HCPCS: 36415; 76805; 80053; 81001; 84702; 85025; 86850; 86900; 86901; 87086; 99284

== ENCOUNTER 2017-11-11 08:42 | Emergency (ER) | payer BC ==
[2017-11-11] MEDS ORDERED: SODIUM CHLORIDE 0.9% 1,000 ML IV ONE (09:32)
[2017-11-11] MEDS ORDERED: ACETAMINOPHEN TAB 500 MG TAB PO STA (09:32)
--- NOTE | 2017-11-11 09:35 | ED ---
Abdominal Pain HPI - General Chief Complaint: Abdominal Pain Stated Complaint: left side pain Time Seen by Provider: 11/11/17 09:21 Source: patient, RN notes reviewed, old records reviewed Mode of arrival: ambulatory Limitations: no limitations - History of Present Illness Initial Comments: This is a 22-year-old female, presents at 17 weeks' stating that she's had some 1 day of left sided flank pain radiating towards her lower abdomen. Patient states that she said history of kidney stones but does not feel this is quite the same patient had with previous kidney stones. She reports that she's not had anything for pain at this time. 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 Denies any nausea or vomiting. Denies any fever or chills. She said normal bowel habits. Patient states that she has no chest pain, shortness of breath. No vaginal bleeding or loss of fluid. - Related Data Previous Rx's Medication Instructions Recorded Nitrofurantoin Monohyd/M-Cryst 100 mg PO Q12HR #14 cap 11/11/17 [Macrobid] Pyridoxine [Vitamin B-6] 50 mg PO BID #12 tablet 11/11/17 Allergies Allergy/AdvReac Type Severity Reaction Status Date / Time venom-honey bee Allergy Anaphylaxis Verified 11/11/17 09:21 [bee venom (honey bee)] cephalexin monohydrate AdvReac Nausea & Verified 11/11/17 09:21 [From Keflex] Vomiting Review of Systems ROS Statement: Those systems with pertinent positive or pertinent negative responses have been documented in the HPI. ROS Other: All systems not noted in ROS Statement are negative. Past Medical History Past Medical History: Asthma Additional Past Medical History / Comment(s): BACK PAIN, KIDNEY INFECTIONS, HEART MURMUR, ovarian cysts, History of Any Multi-Drug Resistant Organisms: None Reported Past Surgical History: Section Past Psychological History: Anxiety, Bipolar, Depression Smoking Status: Current every day smoker Past Alcohol Use History: None Reported Past Drug Use History: None Reported General Exam - General Exam Comments Initial Comments: This patient is a well-appearing 22-year-old female. No acute distress. Limitations: no limitations General appearance: alert, in no apparent distress Head exam: Present: atraumatic, normocephalic, normal inspection Eye exam: Present: normal appearance, PERRL, EOMI. Absent: scleral icterus, conjunctival injection, periorbital swelling ENT exam: Present: normal exam, mucous membranes moist Neck exam: Present: normal inspection. Absent: tenderness, meningismus, lymphadenopathy Respiratory exam: Present: normal lung sounds bilaterally. Absent: respiratory distress, wheezes, rales, rhonchi, stridor Cardiovascular Exam: Present: regular rate, normal rhythm, normal heart sounds. Absent: systolic murmur, diastolic murmur, rubs, gallop, clicks GI/Abdominal exam: Present: soft, tenderness (minimal LLQ pain), normal bowel sounds. Absent: distended, guarding, rebound, rigid Extremities exam: Present: normal inspection, full ROM, normal capillary refill. Absent: tenderness, pedal edema, joint swelling, calf tenderness Back exam: Present: normal inspection, CVA tenderness (L) Neurological exam: Present: alert, oriented X3, CN II-XII intact Psychiatric exam: Present: normal affect, normal mood Course Vital Signs 11/11/17 11/11/17 11/11/17 09:04 11:37 12:53 Temperature 99.2 F 97.8 F 98.1 F Pulse Rate 80 68 61 Respiratory 17 18 18 Rate Blood Pressure 108/57 113/58 100/53 O2 Sat by Pulse 100 97 98 Oximetry Medical Decision Making - Medical Decision Making Symptoms [id number] female currently 17 weeks presents today chief complaint of left-sided abdominal pain and back pain that woke her up this morning. Patient's had no fever or chills or any other major symptoms. She is given Tylenol and IV fluids. Urinalysis positive for infection. She doesn't minimal left CVA tenderness. Patient's lab work otherwise was reviewed also unremarkable. Patient's ultrasound of the patient's no evidence of any other maladies. Ultrasound of the renals were completed no evidence of stones, hydronephrosis. Patient was informed of all his results. At this time I'll put the patient on a start her her Rocephin in the emergency department. Treating the UTI. We'll discharge her with Macrobid. She is ALLERGIC to Keflex. She states that her ALLERGY to Keflex is only nausea and vomiting. Patient will be given strict return parameters including fevers chills or unable tolerate her oral antibiotic. Discussed close follow-up with primary care physician. Discussed return parameters. All questions were answered and return parameters were discussed. - Lab Data Result diagrams: 11/11/17 10:00 11/11/17 10:00 Lab Results 11/11/17 11/11/17 11/11/17 Range/Units 10:00 10:00 10:00 WBC 12.3 H (3.8-10.6) k/uL RBC 3.97 (3.80-5.40) m/uL Hgb 13.0 (11.4-16.0) gm/dL Hct 35.5 (34.0-46.0) % MCV 89.6 (80.0-100.0) fL MCH 32.6 (25.0-35.0) pg MCHC 36.4 (31.0-37.0) g/dL RDW 13.1 (11.5-15.5) % Plt Count 276 (150-450) k/uL Neutrophils % 73 % Lymphocytes % 17 % Monocytes % 5 % Eosinophils % 3 % Basophils % 0 % Neutrophils # 9.0 H (1.3-7.7) k/uL Lymphocytes # 2.1 (1.0-4.8) k/uL Monocytes # 0.6 (0-1.0) k/uL Eosinophils # 0.3 (0-0.7) k/uL Basophils # 0.0 (0-0.2) k/uL Sodium 140 (137-145) mmol/L Potassium 3.9 (3.5-5.1) mmol/L Chloride 108 H (98-107) mmol/L Carbon Dioxide 24 (22-30) mmol/L Anion Gap 8 mmol/L BUN 13 (7-17) mg/dL Creatinine 0.56 (0.52-1.04) mg/dL Est GFR (CKD-EPI)AfAm >90 (>60 ml/min/1.73 sqM) Est GFR (CKD-EPI)NonAf >90 (>60 ml/min/1.73 sqM) Glucose 69 L (74-99) mg/dL Calcium 9.0 (8.4-10.2) mg/dL Total Bilirubin 0.3 (0.2-1.3) mg/dL AST 13 L (14-36) U/L ALT 13 (9-52) U/L Alkaline Phosphatase 54 (38-126) U/L Total Protein 5.9 L (6.3-8.2) g/dL Albumin 3.1 L (3.5-5.0) g/dL Urine Color Yellow Urine Appearance Cloudy H (Clear) Urine pH 6.5 (5.0-8.0) Ur Specific [place] 1.020 (1.001-1.035) Urine Protein Trace H (Negative) Urine Glucose (UA) Negative (Negative) Urine Ketones Negative (Negative) Urine Blood Negative (Negative) Urine Nitrite Negative (Negative) Urine Bilirubin Negative (Negative) Urine Urobilinogen <2.0 (<2.0) mg/dL Ur Leukocyte Esterase Large H (Negative) Urine RBC 5 (0-5) /hpf Urine WBC 23 H (0-5) /hpf Ur Squamous Epith Cells 16 H (0-4) /hpf Amorphous Sediment Rare H (None) /hpf Urine Bacteria Rare H (None) /hpf Urine Mucus Few H (None) /hpf - Radiology Data Radiology results: report reviewed Acute DVT within the left lower extremity extending from the popliteal vein to the proximal calf veins. No evidence of hydronephrosis or nephrolithiasis. Single IUP with sonographic gestational age of 16 weeks and 6 days concordant with menstrual age and estimated shoulder and 04/22/2018. Disposition Clinical Impression: UTI (urinary tract infection), Abdominal pain affecting Disposition: HOME SELF-CARE Condition: Good Instructions: Abdominal Pain in (ED) Additional Instructions: Patient advised to take Tylenol for pain. Take antibiotics as prescribed. Follow-up with PCP. Return to emergency department if any alarming signs or symptoms occur. Prescriptions: Nitrofurantoin Monohyd/M-Cryst [Macrobid] 100 mg PO Q12HR #14 cap Pyridoxine [Vitamin B-6] 50 mg PO BID #12 tablet Referrals: Ld Peace DO [Primary Care Provider] - 1-2 days Time of Disposition: 12:41
[2017-11-11] MEDS ORDERED: SODIUM CHLORIDE 0.9% 1,000 ML IV SCH (09:45)
[2017-11-11 10:16] LABS: Amorphous Sediment,Urine Rare /hpf; Appearance,Urine Cloudy (Clear); Bacteria,Urine Rare /hpf; Bilirubin,Urine Negative (Negative); Blood,Urine Negative (Negative); Color,Urine Yellow; Glucose,Urine (UA) Negative (Negative); Ketones,Urine Negative (Negative); Leukocyte Esterase,Urine Large (Negative); Mucus,Urine Few /hpf; PH, Urine 6.5 (5.0-8.0); Protein,Urine Trace (Negative); RBC,Urine 5 /hpf (0-5); Squamous Epithelial Cell,Urine 16 /hpf (0-4); Urobilinogen,Urine <2.0 mg/dL (<2.0); WBC,Urine 23 /hpf (0-5)
[2017-11-11 10:18] LABS: Basophils % (A) 0 %; Eosinophils # (A) 0.3 k/uL (0-0.7); Eosinophils % (A) 3 %; HCT 35.5 % (34.0-46.0); Lymphocytes # (A) 2.1 k/uL (1.0-4.8); Lymphocytes % (A) 17 %; MCH 32.6 pg (25.0-35.0); MCHC 36.4 g/dL (31.0-37.0); MCV 89.6 fL (80.0-100.0); Mean Platelet Volume 7.1; Monocytes # (A) 0.6 k/uL (0-1.0); Monocytes % (A) 5 %; Neutrophils % (A) 73 %; Platelet Count 276 k/uL (150-450); RBC 3.97 m/uL (3.80-5.40); RDW 13.1 % (11.5-15.5); WBC 12.3 k/uL (3.8-10.6)
[2017-11-11 10:29] LABS: ALT 13 U/L (9-52); AST 13 U/L (14-36); Albumin 3.1 g/dL (3.5-5.0); Alkaline Phosphatase 54 U/L (38-126); Anion Gap 8 mmol/L; Blood Urea Nitrogen 13 mg/dL (7-17); Carbon Dioxide 24 mmol/L (22-30); Chloride 108 mmol/L (98-107); Glucose 69 mg/dL (74-99); Potassium 3.9 mmol/L (3.5-5.1); Sodium 140 mmol/L (137-145); Total Bilirubin 0.3 mg/dL (0.2-1.3); Total Protein 5.9 g/dL (6.3-8.2)
--- NOTE | 2017-11-11 11:18 | US ---
EXAMINATION TYPE: US OB >= 14 wk fetus DATE OF EXAM: 11/11/2017 COMPARISON: None CLINICAL HISTORY: Pain TECHNIQUE: Transabdominal (TA) GESTATIONAL AGE / DATING Physician Established: (16 weeks/4 days) EDC: 04/24/2018 Dates by LMP: (16 weeks/4 days) EDC: 04/24/2018 Dates by 1st scan: Dates by Current Scan: (16 weeks/6 days) EDC: 04/22/18 SURVEY IUP: Single PLACENTA: Posterior, 3 placental lakes noted largest measuring 1.7 x 0.8 x 2.2 PREVIA: No Previa CHELLE: 12.1 cm CERVICAL LENGTH (transabdominal: norm > 3.0cm): 3.0 cm BIOMETRY PRESENTATION: Variable LIE: Variable BPD: 3.7 cm 17 weeks / 1 days HC: 13.7 cm 17 weeks / 1 days AC: 11.4 cm 17 weeks / 1 days FL: 2.1 cm 16 weeks / 2 days ESTIMATED WEIGHT IN GRAMS: 168 grams ESTIMATED WEIGHT IN LBS/OZ: 0 lbs. 6 oz. HC/AC: 1.2 FL/AC: 18.4 HEART RATE: 143. bpm RHYTHM: Normal IMPRESSION: Single live intrauterine with a sonographic gestational age of 16 weeks and 6 days concorda nt with menstrual age and estimated date of delivery of 04/22/2018.
--- NOTE | 2017-11-11 11:29 | US ---
EXAMINATION TYPE: US renals and bladder DATE OF EXAM: 11/11/2017 COMPARISON: US CLINICAL HISTORY: Pain. EXAM MEASUREMENTS: Right Kidney: 12.7 x 4.4 x 5.1 cm Left Kidney: 12.6 x 5.8 x 5.1 cm Right Kidney: No hydronephrosis or masses seen Left Kidney: No hydronephrosis or masses seen Bladder: not fully distended, patient Incidental finding of splenomegaly and the spleen measures 14.1 cm. There is no evidence for hydronephrosis at this point in time. No nephrolithiasis is seen. No nabila s are identified. The urinary bladder is anechoic. Bilateral ureteral jets are seen. IMPRESSION: No hydronephrosis or nephrolithiasis.
[2017-11-11 11:38] VITALS: RESP 18
[2017-11-11] MEDS ORDERED: cefTRIAXone IN SWFI 1,000 MG/10 ML SYRINGE IVP STA (12:12)
[2017-11-11 12:54] VITALS: BP 100/53; PULSE 61; TEMP 98.1
== END 2017-11-11 12:55 | disposition home or self-care (01) ==
LOC: EC 08:42
DX: O23.42 Unspecified infection of urinary tract in pregnancy, second trimester (principal); O26.892 Other specified pregnancy related conditions, second trimester; R10.32 Left lower quadrant pain; O99.89 Other specified diseases and conditions complicating pregnancy, childbirth and the puerperium; M54.9 Dorsalgia, unspecified; O99.332 Smoking (tobacco) complicating pregnancy, second trimester; F17.200 Nicotine dependence, unspecified, uncomplicated; Z3A.17 17 weeks gestation of pregnancy; Z91.030 Bee allergy status; Z88.1 Allergy status to other antibiotic agents
CPT/HCPCS: 36415; 80053; 85025; 81001; 87086; 76805; 76770; 99284; 96374; 96361 ×2; J0696

== ENCOUNTER 2018-02-07 21:49 | Emergency (ER) | payer BC, OTHER ==
[2018-02-07 22:04] VITALS: BP 109/73; PULSE 102; RESP 18; TEMP 99.3
--- NOTE | 2018-02-07 22:10 | ED ---
General Adult HPI - General Chief complaint: Extremity Injury, Lower Stated complaint: Foot Pain Time Seen by Provider: 02/07/18 22:05 Source: patient, RN notes reviewed Mode of arrival: ambulatory Limitations: no limitations - History of Present Illness Initial comments: This is a 22-year-old female who presents to the emergency department with chief complaint of left foot pain. Patient denies any specific injury or trauma. She states that she woke up this morning and noticed pain at the ball of her left foot. She states that she has difficulty bearing weight and ambulating. Patient states that she is currently 30 weeks . She states that she has been taking ibuprofen and Tylenol which has not relieved any of the pain. Denies recent fevers or chills, chest pain or shortness breath , abdominal pain, nausea or vomiting. - Related Data Previous Rx's Medication Instructions Recorded Nitrofurantoin Monohyd/M-Cryst 100 mg PO Q12HR #14 cap 11/11/17 [Macrobid] Pyridoxine [Vitamin B-6] 50 mg PO BID #12 tablet 11/11/17 Allergies Allergy/AdvReac Type Severity Reaction Status Date / Time venom-honey bee Allergy Anaphylaxis Verified 02/07/18 22:03 [bee venom (honey bee)] cephalexin monohydrate AdvReac Nausea & Verified 02/07/18 22:03 [From Keflex] Vomiting Review of Systems ROS Statement: Those systems with pertinent positive or pertinent negative responses have been documented in the HPI. ROS Other: All systems not noted in ROS Statement are negative. Past Medical History Past Medical History: Asthma Additional Past Medical History / Comment(s): BACK PAIN, KIDNEY INFECTIONS, HEART MURMUR, ovarian cysts, History of Any Multi-Drug Resistant Organisms: None Reported Past Surgical History: Section Past Psychological History: Anxiety, Bipolar, Depression Smoking Status: Current every day smoker Past Alcohol Use History: None Reported Past Drug Use History: None Reported General Exam - General Exam Comments Initial Comments: General: Awake and alert, well-developed; in no apparent distress. HEENT: Head atraumatic, normocephalic. Pupils are equal, round and reactive to light. Extraocular movements intact. Oropharynx moist without erythema or exudate. Neck: Supple. Normal ROM. Cardiovascular: Regular rate and rhythm. No murmurs, rubs or gallops. Chest symmetrical. Respiratory: Lungs clear to auscultation bilaterally. No wheezes, rales or rhonchi. Normal respiratory effort with no use of accessory muscles. Musculoskeletal: Normal range of motion of the left foot. There is tenderness on palpation of the mid ball of foot. No heel tenderness. No masses palpated. Sensation is intact. Pedal pulses are 2+ equal and palpable bilaterally. Skin: [place], warm and dry without rashes or lesions. Neurological: Alert and oriented x3. CN II-XII grossly intact. Speech is fluent and answers are appropriate. No focal neuro deficits. Psychiatric: Normal mood and affect. No overt signs of depression or anxiety noted. Limitations: no limitations Course Vital Signs 02/07/18 22:01 Temperature 99.3 F Pulse Rate 102 H Respiratory 18 Rate Blood Pressure 109/73 O2 Sat by Pulse 98 Oximetry Medical Decision Making - Medical Decision Making This is a 22-year-old female who presents to the emergency department with chief complaint of left foot pain. Patient denies any injuries or trauma. She states that she woke up this morning with plantar foot pain. States pain is made worse with walking. There is tenderness on palpation of left plantar surface mid ball of foot. I recommended supportive care with ice, rest, foot padding and Tylenol. I strongly advised patient to stop taking ibuprofen as it is not indicated during . This case was discussed with attending physician, Dr. Marcos. Patient is in no acute distress and will be discharged home at this time. Disposition Clinical Impression: Foot pain, left Disposition: HOME SELF-CARE Condition: Good Instructions: RICE Therapy (ED) Additional Instructions: Please do not take ibuprofen. Please take Tylenol, apply ice and wear foot padding. Please follow up with primary care provider within 1-2 days. Return to emergency department if symptoms should worsen or any concerns arise. Is patient prescribed a controlled substance at d/c from ED?: No Referrals: Ld Peace DO [Primary Care Provider] - 1-2 days Time of Disposition: 22:36
== END 2018-02-07 22:40 | disposition home or self-care (01) ==
LOC: EC 21:49
DX: O99.89 Other specified diseases and conditions complicating pregnancy, childbirth and the puerperium (principal); M79.672 Pain in left foot; O99.333 Smoking (tobacco) complicating pregnancy, third trimester; F17.200 Nicotine dependence, unspecified, uncomplicated; Z91.030 Bee allergy status; Z88.1 Allergy status to other antibiotic agents; Z3A.30 30 weeks gestation of pregnancy
CPT/HCPCS: 99283

== ENCOUNTER 2018-04-05 04:22 | Emergency (ER) | payer BC, OTHER ==
[2018-04-05 04:28] VITALS: RESP 18
[2018-04-05] MEDS ORDERED: IPRATROPIUM-ALBUTEROL 3 ML NEB INHALATION STA (04:52)
--- NOTE | 2018-04-05 04:55 | ED ---
General Adult HPI - General Chief complaint: Upper Respiratory Infection Stated complaint: Cough Time Seen by Provider: 04/05/18 04:47 Source: patient, RN notes reviewed Mode of arrival: ambulatory Limitations: no limitations - History of Present Illness Initial comments: Patient is a pleasant 22-year-old female presenting to the emergency Department with cough. Onset of symptoms was 3 days ago. Patient does have cough with occasional brownish sputum. Patient does have some discomfort of her chest with cough only. Patient also feels somewhat short of breath when she has a coughing spell. Patient is approximately 37 weeks . No pelvic or abdominal pain or cramping. No vaginal bleeding. Patient is 3 para 2. No fevers. does get frequent bronchitis with similar symptoms. - Related Data Previous Rx's Medication Instructions Recorded Albuterol Inhaler [Ventolin Hfa 2 puff INHALATION Q4HR PRN #1 04/05/18 Inhaler] inhaler predniSONE 20 mg PO DAILY #4 tab 04/05/18 Allergies Allergy/AdvReac Type Severity Reaction Status Date / Time venom-honey bee Allergy Anaphylaxis Verified 04/05/18 04:28 [bee venom (honey bee)] cephalexin monohydrate AdvReac Nausea & Verified 04/05/18 04:28 [From Keflex] Vomiting Review of Systems ROS Statement: Those systems with pertinent positive or pertinent negative responses have been documented in the HPI. ROS Other: All systems not noted in ROS Statement are negative. Constitutional: Denies: fever Eyes: Denies: eye pain ENT: Denies: ear pain Respiratory: Reports: as per HPI, cough Cardiovascular: Denies: palpitations Endocrine: Denies: fatigue Gastrointestinal: Denies: abdominal pain Genitourinary: Denies: dysuria Musculoskeletal: Denies: back pain Skin: Denies: rash Neurological: Denies: weakness Past Medical History Past Medical History: Asthma Additional Past Medical History / Comment(s): BACK PAIN, KIDNEY INFECTIONS, HEART MURMUR, ovarian cysts, History of Any Multi-Drug Resistant Organisms: None Reported Past Surgical History: Section Past Psychological History: Anxiety, Bipolar, Depression Smoking Status: Former smoker Past Alcohol Use History: None Reported Past Drug Use History: None Reported General Exam Limitations: no limitations General appearance: alert, in no apparent distress Head exam: Present: atraumatic Eye exam: Present: normal appearance, PERRL ENT exam: Present: normal oropharynx Neck exam: Present: normal inspection Respiratory exam: Present: wheezes Cardiovascular Exam: Present: regular rate, normal rhythm GI/Abdominal exam: Present: soft, distended (Consistent with patient's reported gravid state) Extremities exam: Present: normal inspection. Absent: pedal edema, calf tenderness Neurological exam: Present: alert Psychiatric exam: Present: normal affect, normal mood Skin exam: Present: normal color Course Vital Signs 04/05/18 04/05/18 04/05/18 04:25 05:12 05:19 Temperature 98.5 F Pulse Rate 97 97 102 H Respiratory 18 Rate Blood Pressure 126/81 O2 Sat by Pulse 98 Oximetry - Reevaluation(s) Reevaluation #1: 04/05/18 04:53 Patient does not want IV fluids or blood work at this time however is receptive to a nebulizer treatment and chest x-ray. Medical Decision Making - Medical Decision Making Patient reevaluated and resting comfortably in bed. Patient still has some wheezing on exam. Patient refuses treatment and requests discharge. Patient advised to go to labor and delivery for monitoring. - Radiology Data Radiology results: image reviewed (Chest x-ray shows no acute process) Disposition Clinical Impression: Asthmatic bronchitis Disposition: HOME SELF-CARE Condition: Stable Instructions: Acute Bronchitis (ED) Additional Instructions: Please head to labor and delivery for monitoring. Please follow-up with your OB /[facility] [facility] in the next day or 2 for recheck. Please also follow-up with primary care physician in the next day or 2 for recheck. Return for fevers, difficulty breathing, worsening or changing symptoms or other concerns. Prescriptions: Albuterol Inhaler [Ventolin Hfa Inhaler] 2 puff INHALATION Q4HR PRN #1 inhaler PRN Reason: Dyspnea predniSONE 20 mg PO DAILY #4 tab Is patient prescribed a controlled substance at d/c from ED?: No Referrals: Ld Peace DO [Primary Care Provider] - 1-2 days Time of Disposition: 06:22
--- NOTE | 2018-04-05 06:11 | XR ---
EXAM: XR Chest, 2 Views. CLINICAL HISTORY: Reason: cough TECHNIQUE: Frontal and lateral views of the chest. COMPARISON: No relevant prior studies available. FINDINGS: Lungs: Lung volumes are within normal limits. No consolidation. Pleural spaces: No significant pleural effusion. No pneumothorax. Heart: Unremarkable. No cardiomegaly. Mediastinum: No mediastinal widening or shift. Bones: Unremarkable. No acute fracture. IMPRESSION: No evidence of active cardiopulmonary abnormality.
[2018-04-05] MEDS ORDERED: predniSONE 20 MG TAB PO STA (06:21)
[2018-04-05 06:34] VITALS: BP 126/83; PULSE 73; TEMP 98.7
== END 2018-04-05 06:36 | disposition home or self-care (01) ==
LOC: EC 04:22
DX: O99.513 Diseases of the respiratory system complicating pregnancy, third trimester (principal); J45.909 Unspecified asthma, uncomplicated; Z87.891 Personal history of nicotine dependence; Z91.030 Bee allergy status; Z88.1 Allergy status to other antibiotic agents; Z53.29 Procedure and treatment not carried out because of patient's decision for other reasons; Z3A.37 37 weeks gestation of pregnancy
CPT/HCPCS: 94640; 71046; 99283; J7512

== ENCOUNTER 2018-09-27 21:03 | Emergency (ER) | payer BC, OTHER ==
[2018-09-27 21:34] VITALS: TEMP 98.6
[2018-09-27] MEDS ORDERED: SODIUM CHLORIDE 0.9% 500 ML 500 ML IV STA (21:55)
[2018-09-27] MEDS ORDERED: SODIUM CHLORIDE 0.9% 1,000 ML IV STA ×2 (21:55)
[2018-09-27 22:27] LABS: Basophils % (A) 0 %; Eosinophils # (A) 0.3 k/uL (0-0.7); Eosinophils % (A) 2 %; HCT 40.9 % (34.0-46.0); Lymphocytes # (A) 1.9 k/uL (1.0-4.8); Lymphocytes % (A) 18 %; MCH 31.4 pg (25.0-35.0); MCHC 34.2 g/dL (31.0-37.0); MCV 91.8 fL (80.0-100.0); Monocytes # (A) 0.4 k/uL (0-1.0); Monocytes % (A) 4 %; Neutrophils # (A) 7.5 k/uL (1.3-7.7); Neutrophils % (A) 74 %; Platelet Count 346 k/uL (150-450); RBC 4.45 m/uL (3.80-5.40); RDW 12.5 % (11.5-15.5); WBC 10.2 k/uL (3.8-10.6)
[2018-09-27 22:34] LABS: Appearance,Urine Clear (Clear); Bacteria,Urine Rare /hpf; Bilirubin,Urine Negative (Negative); Blood,Urine Negative (Negative); Color,Urine Yellow; Glucose,Urine (UA) Negative (Negative); Ketones,Urine Negative (Negative); Leukocyte Esterase,Urine Trace (Negative); Mucus,Urine Moderate /hpf; Nitrite,Urine Negative (Negative); Protein,Urine Trace (Negative); RBC,Urine 1 /hpf (0-5); Specific Gravity,Urine 1.021 (1.001-1.035); Squamous Epithelial Cell,Urine 2 /hpf (0-4); WBC,Urine 3 /hpf (0-5)
--- NOTE | 2018-09-27 22:37 | ED ---
Abdominal Pain HPI - General Chief Complaint: Abdominal Pain Stated Complaint: Abd and back pain Time Seen by Provider: 09/27/18 21:47 Source: patient, RN notes reviewed, old records reviewed Mode of arrival: ambulatory Limitations: no limitations - History of Present Illness Initial Comments: This is a 22-year-old female the ER for evaluation. Patient's presented for evaluation of abdominal pain. Back pain. Patient states he bowel pain seems around her prior scar, she is . Denies current . No dysuria no fevers no nausea vomiting. Patient does have history of kidney stones states pain does feel different than prior history of kidney stones., Denies blood in her urine. No recent surgical history. was 6 months ago MD Complaint: abdominal pain, flank pain (Bilateral) -: days(s) (2) Location: suprapubic, R flank Radiation: suprapubic Migration to: suprapubic Severity: mild Severity scale (1-10): 3 Quality: cramping, stabbing, aching Consistency: intermittent Improves With: nothing Worsens With: nothing Associated Symptoms: denies other symptoms Treatments Prior to Arrival: NSAIDs - Related Data Home Medications Medication Instructions Recorded Confirmed Sertraline [Zoloft] 50 mg PO HS 09/27/18 09/27/18 Allergies Allergy/AdvReac Type Severity Reaction Status Date / Time venom-honey bee Allergy Anaphylaxis Verified 09/27/18 21:56 [bee venom (honey bee)] cephalexin monohydrate AdvReac Nausea & Verified 09/27/18 21:56 [From Keflex] Vomiting Review of Systems ROS Statement: Those systems with pertinent positive or pertinent negative responses have been documented in the HPI. ROS Other: All systems not noted in ROS Statement are negative. Past Medical History Past Medical History: Asthma Additional Past Medical History / Comment(s): BACK PAIN, KIDNEY INFECTIONS, HEART MURMUR, ovarian cysts, History of Any Multi-Drug Resistant Organisms: None Reported Past Surgical History: Section Past Psychological History: Anxiety, Bipolar, Depression Smoking Status: Former smoker Past Alcohol Use History: None Reported Past Drug Use History: None Reported General Exam Limitations: no limitations General appearance: alert, in no apparent distress Head exam: Present: atraumatic, normocephalic, normal inspection Eye exam: Present: normal appearance, PERRL, EOMI. Absent: scleral icterus, conjunctival injection, periorbital swelling ENT exam: Present: normal exam, mucous membranes moist Neck exam: Present: normal inspection. Absent: tenderness, meningismus, lymphadenopathy Respiratory exam: Present: normal lung sounds bilaterally. Absent: respiratory distress, wheezes, rales, rhonchi, stridor Cardiovascular Exam: Present: regular rate, normal rhythm, normal heart sounds. Absent: systolic murmur, diastolic murmur, rubs, gallop, clicks GI/Abdominal exam: Present: soft, normal bowel sounds. Absent: distended, tenderness, guarding, rebound, rigid Extremities exam: Present: normal inspection, full ROM, normal capillary refill. Absent: tenderness, pedal edema, joint swelling, calf tenderness Back exam: Present: normal inspection Neurological exam: Present: alert, oriented X3, CN II-XII intact Psychiatric exam: Present: normal affect, normal mood Skin exam: Present: warm, dry, intact, normal color. Absent: rash Course Vital Signs 09/27/18 21:31 Temperature 98.6 F Pulse Rate 101 H Respiratory 16 Rate Blood Pressure 119/77 O2 Sat by Pulse 97 Oximetry - Reevaluation(s) Reevaluation #1: 09/27/18 23:03 Medical record is reviewed noncontributory Reevaluation #2: 09/27/18 23:04 Patient has adequate pain control Medical Decision Making - Medical Decision Making 22 female the ER for evaluation of nonspecific abdominal pain. Patient has normal lab values here with normal urinalysis. CT of pelvis negative. Patient can be discharged home - Lab Data Result diagrams: 09/27/18 22:10 09/27/18 22:10 Lab Results 09/27/18 09/27/18 09/27/18 Range/Units 22:10 22:10 22:10 WBC 10.2 (3.8-10.6) k/uL RBC 4.45 (3.80-5.40) m/uL Hgb 14.0 (11.4-16.0) gm/dL Hct 40.9 (34.0-46.0) % MCV 91.8 (80.0-100.0) fL MCH 31.4 (25.0-35.0) pg MCHC 34.2 (31.0-37.0) g/dL RDW 12.5 (11.5-15.5) % Plt Count 346 (150-450) k/uL Neutrophils % 74 % Lymphocytes % 18 % Monocytes % 4 % Eosinophils % 2 % Basophils % 0 % Neutrophils # 7.5 (1.3-7.7) k/uL Lymphocytes # 1.9 (1.0-4.8) k/uL Monocytes # 0.4 (0-1.0) k/uL Eosinophils # 0.3 (0-0.7) k/uL Basophils # 0.0 (0-0.2) k/uL Sodium 140 (137-145) mmol/L Potassium 4.0 (3.5-5.1) mmol/L Chloride 106 (98-107) mmol/L Carbon Dioxide 25 (22-30) mmol/L Anion Gap 9 mmol/L BUN 12 (7-17) mg/dL Creatinine 0.59 (0.52-1.04) mg/dL Est GFR (CKD-EPI)AfAm >90 (>60 ml/min/1.73 sqM) Est GFR (CKD-EPI)NonAf >90 (>60 ml/min/1.73 sqM) Glucose 119 H (74-99) mg/dL Calcium 9.8 (8.4-10.2) mg/dL Total Bilirubin 0.5 (0.2-1.3) mg/dL AST 21 (14-36) U/L ALT 18 (9-52) U/L Alkaline Phosphatase 70 (38-126) U/L Total Protein 7.2 (6.3-8.2) g/dL Albumin 4.2 (3.5-5.0) g/dL Amylase 35 (30-110) U/L Lipase 37 (23-300) U/L Urine Color Urine Appearance (Clear) Urine pH (5.0-8.0) Ur Specific [place] (1.001-1.035) Urine Protein (Negative) Urine Glucose (UA) (Negative) Urine Ketones (Negative) Urine Blood (Negative) Urine Nitrite (Negative) Urine Bilirubin (Negative) Urine Urobilinogen (<2.0) mg/dL Ur Leukocyte Esterase (Negative) Urine RBC (0-5) /hpf Urine WBC (0-5) /hpf Ur Squamous Epith Cells (0-4) /hpf Urine Bacteria (None) /hpf Urine Mucus (None) /hpf Urine HCG, Qual Not Detected (Not Detectd) 09/27/18 Range/Units 22:10 WBC (3.8-10.6) k/uL RBC (3.80-5.40) m/uL Hgb (11.4-16.0) gm/dL Hct (34.0-46.0) % MCV (80.0-100.0) fL MCH (25.0-35.0) pg MCHC (31.0-37.0) g/dL RDW (11.5-15.5) % Plt Count (150-450) k/uL Neutrophils % % Lymphocytes % % Monocytes % % Eosinophils % % Basophils % % Neutrophils # (1.3-7.7) k/uL Lymphocytes # (1.0-4.8) k/uL Monocytes # (0-1.0) k/uL Eosinophils # (0-0.7) k/uL Basophils # (0-0.2) k/uL Sodium (137-145) mmol/L Potassium (3.5-5.1) mmol/L Chloride (98-107) mmol/L Carbon Dioxide (22-30) mmol/L Anion Gap mmol/L BUN (7-17) mg/dL Creatinine (0.52-1.04) mg/dL Est GFR (CKD-EPI)AfAm (>60 ml/min/1.73 sqM) Est GFR (CKD-EPI)NonAf (>60 ml/min/1.73 sqM) Glucose (74-99) mg/dL Calcium (8.4-10.2) mg/dL Total Bilirubin (0.2-1.3) mg/dL AST (14-36) U/L ALT (9-52) U/L Alkaline Phosphatase (38-126) U/L Total Protein (6.3-8.2) g/dL Albumin (3.5-5.0) g/dL Amylase (30-110) U/L Lipase (23-300) U/L Urine Color Yellow Urine Appearance Clear (Clear) Urine pH 6.0 (5.0-8.0) Ur Specific [place] 1.021 (1.001-1.035) Urine Protein Trace H (Negative) Urine Glucose (UA) Negative (Negative) Urine Ketones Negative (Negative) Urine Blood Negative (Negative) Urine Nitrite Negative (Negative) Urine Bilirubin Negative (Negative) Urine Urobilinogen 6.0 (<2.0) mg/dL Ur Leukocyte Esterase Trace H (Negative) Urine RBC 1 (0-5) /hpf Urine WBC 3 (0-5) /hpf Ur Squamous Epith Cells 2 (0-4) /hpf Urine Bacteria Rare H (None) /hpf Urine Mucus Moderate H (None) /hpf Urine HCG, Qual (Not Detectd) - Radiology Data Radiology results: report reviewed (CT pelvis negative for acute disease), image reviewed Disposition Clinical Impression: Abdominal pain Disposition: HOME SELF-CARE Condition: Good Instructions (If sedation given, give patient instructions): Abdominal Pain (ED ) Is patient prescribed a controlled substance at d/c from ED?: No Referrals: Ld Peace DO [Primary Care Provider] - 1-2 days
[2018-09-27 22:48] LABS: ALT 18 U/L (9-52); AST 21 U/L (14-36); Albumin 4.2 g/dL (3.5-5.0); Alkaline Phosphatase 70 U/L (38-126); Amylase 35 U/L (30-110); Anion Gap 9 mmol/L; Blood Urea Nitrogen 12 mg/dL (7-17); Calcium 9.8 mg/dL (8.4-10.2); Carbon Dioxide 25 mmol/L (22-30); Chloride 106 mmol/L (98-107); Glucose 119 mg/dL (74-99); Lipase 37 U/L (23-300); Sodium 140 mmol/L (137-145); Total Bilirubin 0.5 mg/dL (0.2-1.3); Total Protein 7.2 g/dL (6.3-8.2)
[2018-09-27] MEDS ORDERED: KETOROLAC 30 MG/ML 1 ML VIAL IVP STA (22:52)
[2018-09-27] MEDS ORDERED: ONDANSETRON 4 MG/2 ML VIAL IVP STA (22:52)
[2018-09-27] MEDS ORDERED: MORPHINE SULFATE 4 MG/ML SYRINGE IVP STA (22:52)
--- NOTE | 2018-09-28 00:38 | CT ---
EXAMINATION TYPE: CT abdomen pelvis wo con DATE OF EXAM: 09/27/2018 COMPARISON: None HISTORY: Right flank pain CT DLP: 453.9 mGycm Automated exposure control for dose reduction was used. TECHNIQUE: Helical acquisition of images was performed from the lung bases through the pelvis. FINDINGS: Lung bases are clear. There is no pleural effusion. Heart size is normal. Liver spleen pancreas gallb ladder appear normal. Bile ducts are not dilated. There are some proximal loops of small bowel with wall thickening up to 12 mm. There is umbilical her gigi that contains fat. There is no free air. There is no ascites. There is no adrenal mass. The kidneys have normal size and contour. There is no hydronephrosis. Urete rs are not dilated. Appendix appears normal. Terminal ileum appears normal. Bladder distends smoothly. There is no inguinal hernia. There is no free fluid in the pelvis. There i s a 4.3 cm cystic fluid collection in the pelvis on the right side consistent with ovarian cyst. Lumbar vertebra have normal spacing and alignment. Bony pelvis is intact. IMPRESSION: THERE IS PROXIMAL SMALL BOWEL WALL THICKENING SUGGESTIVE OF GASTROENTERITIS. LARGE RIGHT OVARIAN CYST. NO DILATED DUCTS. NO RENAL STONE OR OBSTRUCTION. NORMAL APPENDIX.
[2018-09-28 01:10] VITALS: BP 115/72; PULSE 68; RESP 18
== END 2018-09-28 01:08 | disposition home or self-care (01) ==
LOC: EC 21:03
DX: R10.9 Unspecified abdominal pain (principal); M54.9 Dorsalgia, unspecified; F31.9 Bipolar disorder, unspecified; F41.9 Anxiety disorder, unspecified; Z87.891 Personal history of nicotine dependence; Z79.899 Other long term (current) drug therapy; Z91.030 Bee allergy status; Z88.1 Allergy status to other antibiotic agents
CPT/HCPCS: 36415; 80053; 82150; 83690; 85025; 81001; 81025; 87086; 74176; 99285; 96374; 96375 ×2; 96361 ×3; J2270; J2405; J1885

== ENCOUNTER 2019-10-05 23:21 | Emergency (ER) | payer BC, OTHER ==
[2019-10-05 23:51] VITALS: RESP 18; TEMP 98.7
[2019-10-06] MEDS ORDERED: IPRATROPIUM 0.5 MG/2.5 ML NEBU INHALATION STA (00:11)
[2019-10-06] MEDS ORDERED: predniSONE 50 MG TAB PO STA (00:11)
[2019-10-06] MEDS ORDERED: ALBUTEROL NEBULIZED 2.5 MG/3 ML INHALATION STA (00:11)
--- NOTE | 2019-10-06 00:29 | XR ---
EXAMINATION TYPE: XR chest 2V DATE OF EXAM: 10/06/2019 COMPARISON: 04/05/2018 HISTORY: Difficulty breathing TECHNIQUE: 2 views FINDINGS: Heart is normal. Lungs are clear. Diaphragm is normal. Bony thorax appears normal. There ar e chest leads. IMPRESSION: Normal chest. No change.
--- NOTE | 2019-10-06 01:02 | ED ---
SOB HPI - General Chief Complaint: Shortness of Breath Stated Complaint: Chest Tightness Time Seen by Provider: 10/05/19 23:51 Source: patient Mode of arrival: ambulatory Limitations: no limitations - History of Present Illness Initial Comments: 23-year-old female patient presents to the emergency department today for evaluation of shortness of breath and wheezing. Patient states that symptoms started approximately 2 hours ago. Patient states she was recently ill with upper respiratory infection but symptoms seem to have resolved. Patient states she was just getting out of work when symptoms started. She denies exposure to any new substances. 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 She denies any fevers or chills. She is not coughing up any sputum. She denies any rash or itching. Denies taking any medication for her symptoms. She does admit to smoking half a pack of cigarettes per day. Denies any history of asthma. Patient denies any recent rash, abdominal pain, nausea, vomiting, diarrhea, constipation, back pain, numbness, tingling, dizziness, weakness, hematuria, dysuria, urinary urgency, urinary frequency, headache, visual changes, or any other complaints. - Related Data Previous Rx's Medication Instructions Recorded Albuterol Sulfate [Proair Hfa] 1 - 2 puff INHALATION Q6HR PRN #1 10/06/19 inhaler Ipratropium-Albuterol Nebulize 3 ml INHALATION Q4H PRN #30 neb 10/06/19 [Duoneb 0.5 mg-3 mg/3 ml Soln] predniSONE 50 mg PO DAILY #5 tablet 10/06/19 Allergies Allergy/AdvReac Type Severity Reaction Status Date / Time venom-honey bee Allergy Anaphylaxis Verified 09/27/18 21:56 [bee venom (honey bee)] cephalexin monohydrate AdvReac Nausea & Verified 09/27/18 21:56 [From Keflex] Vomiting Review of Systems ROS Statement: Those systems with pertinent positive or pertinent negative responses have been documented in the HPI. ROS Other: All systems not noted in ROS Statement are negative. Past Medical History Past Medical History: Asthma Additional Past Medical History / Comment(s): BACK PAIN, KIDNEY INFECTIONS, HEART MURMUR, ovarian cysts History of Any Multi-Drug Resistant Organisms: None Reported Past Surgical History: Section Past Psychological History: Anxiety, Bipolar, Depression Smoking Status: Current some day smoker Past Alcohol Use History: None Reported Past Drug Use History: None Reported General Exam Limitations: no limitations General appearance: alert, in no apparent distress, other (Physical well-developed, well-nourished adult female patient in mild respiratory distress. Vital signs upon presentation are temperature 98.7F, pulse 91, respirations 18, blood pressure 130/76, pulse ox 98% on room air.) Eye exam: Present: normal appearance, PERRL, EOMI. Absent: scleral icterus, conjunctival injection, periorbital swelling ENT exam: Present: normal exam, normal oropharynx, mucous membranes moist Respiratory exam: Present: respiratory distress (Mild), wheezes (Inspiratory and expiratory wheezing noted in the posterior lung main), other (Tachypnea). Absent: rales, rhonchi, stridor Cardiovascular Exam: Present: regular rate, normal rhythm, normal heart sounds. Absent: systolic murmur, diastolic murmur, rubs, gallop, clicks GI/Abdominal exam: Present: soft, normal bowel sounds. Absent: distended, tenderness, guarding, rebound, rigid Neurological exam: Present: alert, oriented X3, CN II-XII intact Psychiatric exam: Present: normal affect, normal mood Skin exam: Present: warm, dry, intact, normal color. Absent: rash Course Vital Signs 10/05/19 10/06/19 10/06/19 23:45 00:21 00:49 Temperature 98.7 F Pulse Rate 91 80 84 Respiratory 18 Rate Blood Pressure 130/76 O2 Sat by Pulse 98 Oximetry 10/06/19 01:05 Temperature Pulse Rate 78 Respiratory 18 Rate Blood Pressure 134/73 O2 Sat by Pulse 98 Oximetry Medical Decision Making - Medical Decision Making 23-year-old female patient presents to the emergency department today for evaluation of shortness of breath and wheezing. Physical examination did reveal inspiratory and expiratory wheezing in the posterior lung main. She was tachypneic. She was given albuterol and Atrovent breathing treatment. A dose of steroids here. Upon reevaluation she reports much improvement in symptoms. Lungs are now clear to auscultation. Oxygen saturation has been maintained on 98-99% throughout her stay. I did discuss negative chest x-ray results. She will be discharged home with a prescription for Pro Air inhaler and a prednisone. She does have access to a nebulizer machine so we will send DuoNeb treatments as well. She is instructed to follow-up with her primary care physician for recheck in 1-2 days. She was counseled regarding smoking cessation for a total of 3 minutes. Return parameters were discussed in detail. She verbalizes understanding and agrees with this plan. - Radiology Data Radiology results: report reviewed, image reviewed Two-view x-ray of the chest is obtained. Report was reviewed in its entirety. Impression by Dr. Soler shows normal chest. No change Disposition Clinical Impression: Bronchospasm Disposition: HOME SELF-CARE Condition: Good Instructions (If sedation given, give patient instructions): Asthma (ED), Bronchospasm (ED) Additional Instructions: Take medications as directed. Follow-up with the primary care physician for recheck as soon as possible. Return to the emergency department immediately for any new, worsening, or concerning symptoms. Prescriptions: Ipratropium-Albuterol Nebulize [Duoneb 0.5 mg-3 mg/3 ml Soln] 3 ml INHALATION Q4H PRN #30 neb PRN Reason: Wheezing/Shortness of breath predniSONE 50 mg PO DAILY #5 tablet Albuterol Sulfate [Proair Hfa] 1 - 2 puff INHALATION Q6HR PRN #1 inhaler PRN Reason: Shortness Of Breath Is patient prescribed a controlled substance at d/c from ED?: No Referrals: None,Stated [Primary Care Provider] - 1-2 days Time of Disposition: 01:02
[2019-10-06 01:06] VITALS: BP 134/73; PULSE 78
== END 2019-10-06 01:09 | disposition home or self-care (01) ==
LOC: EC 23:21
DX: J98.01 Acute bronchospasm (principal); Z71.6 Tobacco abuse counseling; F17.200 Nicotine dependence, unspecified, uncomplicated; Z88.1 Allergy status to other antibiotic agents; Z91.030 Bee allergy status; Z87.09 Personal history of other diseases of the respiratory system
CPT/HCPCS: 94640; 71046; 99285; 99406; J7512

== ENCOUNTER 2020-02-29 07:43 | Emergency (ER) | payer BC, OTHER ==
[2020-02-29] MEDS ORDERED: ACETAMINOPHEN TAB 500 MG TAB PO STA (08:19)
[2020-02-29] MEDS ORDERED: ONDANSETRON 4 MG/2 ML VIAL IVP STA (08:19)
[2020-02-29] MEDS ORDERED: SODIUM CHLORIDE 0.9% 500 ML 500 ML IV STA (08:19)
[2020-02-29] MEDS ORDERED: SODIUM CHLORIDE 0.9% 1,000 ML IV STA (08:19)
[2020-02-29] MEDS ORDERED: KETOROLAC 30 MG/ML 1 ML VIAL IVP STA (08:19)
--- NOTE | 2020-02-29 08:24 | ED ---
General Adult HPI - General Chief complaint: Urogenital Stated complaint: fever/body aches Time Seen by Provider: 02/29/20 08:12 Source: patient Mode of arrival: ambulatory Limitations: no limitations - History of Present Illness Initial comments: 24-year-old female patient presents to the emergency department today for evaluation of bilateral flank pain and fever. Patient states that she has had back pain for the last 2-3 days. States that she was seen and evaluated at [facility] and was diagnosed with a muscle strain. She states that since her visit she has been feeling more and more ill. States that she has been nauseated but has not vomited. Denies any constipation or diarrhea. She denies any abdominal pain. Denies any hematuria, dysuria, urinary frequency, urinary urgency. Patient states that she has had kidney infection in the past and this feels similar. She denies any cough, congestion, sore throat, or nasal congestion. Denies any rash. She denies abnormal vaginal bleeding or discharge. Denies chance of . Patient denies any recent chest pain, abdominal pain, diarrhea, constipation, back pain, numbness, tingling, dizziness, weakness, headache, visual changes, or any other complaints. - Related Data Previous Rx's Medication Instructions Recorded Albuterol Sulfate [Proair Hfa] 1 - 2 puff INHALATION Q6HR PRN #1 10/06/19 inhaler Cephalexin [Keflex] 500 mg PO Q6HR #40 cap 02/29/20 Ondansetron [Zofran ODT] 4 mg PO Q8HR PRN #10 tab 02/29/20 Allergies Allergy/AdvReac Type Severity Reaction Status Date / Time venom-honey bee Allergy Anaphylaxis Verified 02/29/20 09:38 [bee venom (honey bee)] cephalexin monohydrate AdvReac Nausea & Verified 02/29/20 09:38 [From Keflex] Vomiting Review of Systems ROS Statement: Those systems with pertinent positive or pertinent negative responses have been documented in the HPI. ROS Other: All systems not noted in ROS Statement are negative. Past Medical History Past Medical History: Asthma Additional Past Medical History / Comment(s): BACK PAIN, KIDNEY INFECTIONS, HEART MURMUR, ovarian cysts History of Any Multi-Drug Resistant Organisms: None Reported Past Surgical History: Section Past Psychological History: Anxiety, Bipolar, Depression Smoking Status: Current every day smoker Past Alcohol Use History: None Reported Past Drug Use History: None Reported General Exam Limitations: no limitations General appearance: alert, in no apparent distress, other (This is a well- developed, well-nourished adult female patient in no acute distress. Vital signs upon presentation are temperature 101.0F, pulse 123, respirations 18, blood pressure 107/70, pulse ox 97% on room air.) ENT exam: Present: normal exam, normal oropharynx, mucous membranes moist Respiratory exam: Present: normal lung sounds bilaterally. Absent: respiratory distress, wheezes, rales, rhonchi, stridor Cardiovascular Exam: Present: regular rate, normal rhythm, normal heart sounds. Absent: systolic murmur, diastolic murmur, rubs, gallop, clicks GI/Abdominal exam: Present: soft, normal bowel sounds. Absent: distended, tenderness, guarding, rebound, rigid Back exam: Present: normal inspection, CVA tenderness (R), CVA tenderness (L) Neurological exam: Present: alert, oriented X3, CN II-XII intact Psychiatric exam: Present: normal affect, normal mood Skin exam: Present: warm, dry, intact, normal color. Absent: rash Course Vital Signs 02/29/20 02/29/20 08:07 09:09 Temperature 101.0 F H 99.7 F H Pulse Rate 123 H 72 Respiratory 18 20 Rate Blood Pressure 107/70 109/59 O2 Sat by Pulse 97 96 Oximetry Medical Decision Making - Medical Decision Making 24-year-old female patient presented to the emergency department today for evaluation of mid back pain and fever. Patient states his been feeling unwell for the last 2 days. Physical examination did reveal bilateral CVA tenderness. No abdominal tenderness. Labs reviewed and did reveal elevated white blood cell count, urinalysis is positive for infection. Symptoms and labs are consistent with pyelonephritis. Patient be given a dose of IV Rocephin here in the department. We'll discharge with prescription for Keflex. She is instructed to take Tylenol Motrin for fever control. She is instructed to follow-up with the primary care physician for recheck in 1-2 days. Return parameters were discussed in detail. They verbalize understanding and agree with this plan. - Lab Data Result diagrams: 02/29/20 08:32 02/29/20 08:32 Lab Results 02/29/20 02/29/20 02/29/20 Range/Units 08:32 08:32 08:32 WBC 12.5 H (3.8-10.6) k/uL RBC 4.20 (3.80-5.40) m/uL Hgb 13.9 (11.4-16.0) gm/dL Hct 40.0 (34.0-46.0) % MCV 95.3 (80.0-100.0) fL MCH 33.2 (25.0-35.0) pg MCHC 34.8 (31.0-37.0) g/dL RDW 12.2 (11.5-15.5) % Plt Count 300 (150-450) k/uL Neutrophils % 79 % Lymphocytes % 11 % Monocytes % 6 % Eosinophils % 2 % Basophils % 0 % Neutrophils # 9.9 H (1.3-7.7) k/uL Lymphocytes # 1.4 (1.0-4.8) k/uL Monocytes # 0.7 (0-1.0) k/uL Eosinophils # 0.3 (0-0.7) k/uL Basophils # 0.1 (0-0.2) k/uL Sodium 137 (137-145) mmol/L Potassium 4.6 (3.5-5.1) mmol/L Chloride 107 (98-107) mmol/L Carbon Dioxide 22 (22-30) mmol/L Anion Gap 8 mmol/L BUN 11 (7-17) mg/dL Creatinine 0.79 (0.52-1.04) mg/dL Est GFR (CKD-EPI)AfAm >90 (>60 ml/min/1.73 sqM) Est GFR (CKD-EPI)NonAf >90 (>60 ml/min/1.73 sqM) Glucose 97 (74-99) mg/dL Plasma Lactic Acid Tam (0.7-2.0) mmol/L Calcium 9.1 (8.4-10.2) mg/dL Total Bilirubin 1.0 (0.2-1.3) mg/dL AST 30 (14-36) U/L ALT 10 (4-34) U/L Alkaline Phosphatase 52 (38-126) U/L Total Protein 7.1 (6.3-8.2) g/dL Albumin 4.1 (3.5-5.0) g/dL Amylase 31 (30-110) U/L Lipase 23 (23-300) U/L Urine Color Yellow Urine Appearance Cloudy H (Clear) Urine pH 5.5 (5.0-8.0) Ur Specific [place] 1.014 (1.001-1.035) Urine Protein 1+ H (Negative) Urine Glucose (UA) Negative (Negative) Urine Ketones Trace H (Negative) Urine Blood Moderate H (Negative) Urine Nitrite Positive H (Negative) Urine Bilirubin Negative (Negative) Urine Urobilinogen 2.0 (<2.0) mg/dL Ur Leukocyte Esterase Large H (Negative) Urine RBC 8 H (0-5) /hpf Urine WBC >182 H (0-5) /hpf Urine WBC Clumps Few H (None) /hpf Ur Squamous Epith Cells 8 H (0-4) /hpf Urine Bacteria Moderate H (None) /hpf Urine Mucus Few H (None) /hpf Urine HCG, Qual (Not Detectd) 02/29/20 02/29/20 Range/Units 08:32 08:32 WBC (3.8-10.6) k/uL RBC (3.80-5.40) m/uL Hgb (11.4-16.0) gm/dL Hct (34.0-46.0) % MCV (80.0-100.0) fL MCH (25.0-35.0) pg MCHC (31.0-37.0) g/dL RDW (11.5-15.5) % Plt Count (150-450) k/uL Neutrophils % % Lymphocytes % % Monocytes % % Eosinophils % % Basophils % % Neutrophils # (1.3-7.7) k/uL Lymphocytes # (1.0-4.8) k/uL Monocytes # (0-1.0) k/uL Eosinophils # (0-0.7) k/uL Basophils # (0-0.2) k/uL Sodium (137-145) mmol/L Potassium (3.5-5.1) mmol/L Chloride (98-107) mmol/L Carbon Dioxide (22-30) mmol/L Anion Gap mmol/L BUN (7-17) mg/dL Creatinine (0.52-1.04) mg/dL Est GFR (CKD-EPI)AfAm (>60 ml/min/1.73 sqM) Est GFR (CKD-EPI)NonAf (>60 ml/min/1.73 sqM) Glucose (74-99) mg/dL Plasma Lactic Acid Tam 0.8 (0.7-2.0) mmol/L Calcium (8.4-10.2) mg/dL Total Bilirubin (0.2-1.3) mg/dL AST (14-36) U/L ALT (4-34) U/L Alkaline Phosphatase (38-126) U/L Total Protein (6.3-8.2) g/dL Albumin (3.5-5.0) g/dL Amylase (30-110) U/L Lipase (23-300) U/L Urine Color Urine Appearance (Clear) Urine pH (5.0-8.0) Ur Specific [place] (1.001-1.035) Urine Protein (Negative) Urine Glucose (UA) (Negative) Urine Ketones (Negative) Urine Blood (Negative) Urine Nitrite (Negative) Urine Bilirubin (Negative) Urine Urobilinogen (<2.0) mg/dL Ur Leukocyte Esterase (Negative) Urine RBC (0-5) /hpf Urine WBC (0-5) /hpf Urine WBC Clumps (None) /hpf Ur Squamous Epith Cells (0-4) /hpf Urine Bacteria (None) /hpf Urine Mucus (None) /hpf Urine HCG, Qual Not Detected (Not Detectd) Disposition Clinical Impression: Pyelonephritis Disposition: HOME SELF-CARE Condition: Good Instructions (If sedation given, give patient instructions): Kidney Infection (ED) Additional Instructions: Increase fluids. Rest. Complete antibiotic prescription in full. Follow up with your primary care physician for recheck in 1-2 days. Return to the emergency department for any new, worsening, or concerning symptoms. Prescriptions: Cephalexin [Keflex] 500 mg PO Q6HR #40 cap Ondansetron [Zofran ODT] 4 mg PO Q8HR PRN #10 tab PRN Reason: Nausea Is patient prescribed a controlled substance at d/c from ED?: No Referrals: Rudolph Malagon [STAFF PHYSICIAN] - 1-2 days Time of Disposition: 09:48
[2020-02-29 08:42] LABS: Basophils # (A) 0.1 k/uL (0-0.2); Basophils % (A) 0 %; Eosinophils # (A) 0.3 k/uL (0-0.7); Eosinophils % (A) 2 %; HGB 13.9 gm/dL (11.4-16.0); Lymphocytes # (A) 1.4 k/uL (1.0-4.8); Lymphocytes % (A) 11 %; MCH 33.2 pg (25.0-35.0); MCHC 34.8 g/dL (31.0-37.0); MCV 95.3 fL (80.0-100.0); Mean Platelet Volume 7.6; Monocytes # (A) 0.7 k/uL (0-1.0); Monocytes % (A) 6 %; Neutrophils # (A) 9.9 k/uL (1.3-7.7); Neutrophils % (A) 79 %; Platelet Count 300 k/uL (150-450); RDW 12.2 % (11.5-15.5); WBC 12.5 k/uL (3.8-10.6)
[2020-02-29 08:47] LABS: Appearance,Urine Cloudy (Clear); Bacteria,Urine Moderate /hpf; Bilirubin,Urine Negative (Negative); Blood,Urine Moderate (Negative); Color,Urine Yellow; Glucose,Urine (UA) Negative (Negative); Ketones,Urine Trace (Negative); Leukocyte Esterase,Urine Large (Negative); Mucus,Urine Few /hpf; Nitrite,Urine Positive (Negative); PH, Urine 5.5 (5.0-8.0); Protein,Urine 1+ (Negative); RBC,Urine 8 /hpf (0-5); Specific Gravity,Urine 1.014 (1.001-1.035); Squamous Epithelial Cell,Urine 8 /hpf (0-4); WBC,Urine >182 /hpf (0-5)
[2020-02-29 08:59] LABS: ALT 10 U/L (4-34); African American GFR (CKD) >90 (>60 ml/min/1.73 sqM); Albumin 4.1 g/dL (3.5-5.0); Amylase 31 U/L (30-110); Anion Gap 8 mmol/L; Blood Urea Nitrogen 11 mg/dL (7-17); Calcium 9.1 mg/dL (8.4-10.2); Carbon Dioxide 22 mmol/L (22-30); Chloride 107 mmol/L (98-107); Glucose 97 mg/dL (74-99); Non-African American GFR(CKD) >90 (>60 ml/min/1.73 sqM); Sodium 137 mmol/L (137-145); Total Protein 7.1 g/dL (6.3-8.2)
[2020-02-29 09:00] LABS: AST 30 U/L (14-36); Alkaline Phosphatase 52 U/L (38-126); Potassium 4.6 mmol/L (3.5-5.1)
[2020-02-29] MEDS ORDERED: cefTRIAXone IN SWFI 1,000 MG/10 ML SYRINGE IVP STA (09:02)
[2020-02-29 09:32] VITALS: RESP 20
[2020-02-29 10:47] VITALS: BP 104/66; PULSE 81; TEMP 98.2
== END 2020-02-29 10:48 | disposition home or self-care (01) ==
LOC: EC 07:43
DX: N12 Tubulo-interstitial nephritis, not specified as acute or chronic (principal); D72.829 Elevated white blood cell count, unspecified; F17.200 Nicotine dependence, unspecified, uncomplicated; Z91.030 Bee allergy status; Z88.1 Allergy status to other antibiotic agents
CPT/HCPCS: 36415; 80053; 82150; 83605; 83690; 85025; 81001; 81025; 87040; 87086; 99284; 96374; 96375 ×2; 96361; J2405; J0696; J1885; 87077; 87186

== ENCOUNTER → 2020-12-22 | Outpatient (CLI) | payer OTHER ==
--- NOTE | 2020-12-22 11:46 | US ---
EXAMINATION TYPE: Ultrasound OB <= 14 week fetus DATE OF EXAM: 12/22/2020 10:48 AM COMPARISON: NONE CLINICAL HISTORY: 25-year-old female Z36 confirm dates. EXAM PERFORMED: Transabdominal (TA) FINDINGS: EXAM MEASUREMENTS: GESTATIONAL AGE / DATING Physician Established: Not yet established Dates by LMP: (11 weeks/3 days) EDC: 07/10/21 Dates by First Scan: No previous this is first scan Dates by Current Scan for: (12 weeks/1 days) EDC: 07/05/21 MATERNAL ANATOMY Uterus: 13.1 x 8.4 x 10.3cm -oval isoechoic area anterior fundus = 4.9 x 2.7 x 4.6cm Right Ovary: 6.8 x 4.0 x 3.9cm Left Ovary: not seen Post CDS / Adnexa: wnl Presence of free fluid: no Presence of corpus luteal cyst: 2 cystic areas right ovary = 4.1 x 2.8 x 3.0cm and 3.9 x 2.6 x 3.6cm Presence of subchorionic bleed: yes, small, crescentic along the right lateral aspect of the gestatio nal sac = 0.8 x 0.9 x 2.0cm GESTATION / SURVEY CRL: 5.4cm (12 weeks/1 days) Yolk Sac (normal less than 6mm): 0.4cm Heart Rate: 158 bpm Rhythm: Normal IUP: Viable IUP Age Appropriate Anatomy Calvarium: Visualized Date of LMP: 10/03/20 Beta HcG (if available): Not available at this time IMPRESSION: 1. Single live intrauterine with estimated gestational age of 11 weeks 3 days. Current ultr asound biometry is slightly larger at 12 weeks 1 day. 2. Small perigestational bleed towards the right measuring 2.0 x 0.9 x 0.8 cm. 3. A 4.9 x 4.6 x 2.7 cm anterior uterine myometrial fibroid. 4. 2 cysts within the right ovary measuring up to 4.1 cm, one of these likely represents a corpus lut eal cyst.
== END | disposition home or self-care (01) ==
LOC: RADUSWWP 10:25
PROVIDERS: ATTEND Obstetrics & Gynecology
DX: O34.11 Maternal care for benign tumor of corpus uteri, first trimester (principal); O20.9 Hemorrhage in early pregnancy, unspecified; O34.81 Maternal care for other abnormalities of pelvic organs, first trimester; N83.201 Unspecified ovarian cyst, right side; Z3A.12 12 weeks gestation of pregnancy
CPT/HCPCS: 76801

== ENCOUNTER 2021-05-23 03:07 | Outpatient (CLI) | payer OTHER ==
[2021-05-23 03:36] LABS: Amorphous Sediment,Urine Rare /hpf; Appearance,Urine Cloudy (Clear); Bacteria,Urine Rare /hpf; Bilirubin,Urine Negative (Negative); Blood,Urine Negative (Negative); Color,Urine Light Yellow; Glucose,Urine (UA) Negative (Negative); Ketones,Urine Negative (Negative); Leukocyte Esterase,Urine Negative (Negative); Mucus,Urine Rare /hpf; Nitrite,Urine Negative (Negative); Protein,Urine Negative (Negative); Specific Gravity,Urine 1.013 (1.001-1.035); Squamous Epithelial Cell,Urine <1 /hpf (0-4); Urobilinogen,Urine <2.0 mg/dL (<2.0); WBC,Urine 2 /hpf (0-5)
[2021-05-23 03:43] VITALS: BP 123/77; PULSE 97; RESP 16; TEMP 97
--- NOTE | 2021-05-24 17:33 | P.MSEPDOC ---
Presenting Problems - Arrival Data Date of Arrival on Unit: 05/23/21 Time of Arrival on Unit: 03:07 Mode of Transport: Ambulatory - Complaint OB-Reason for Admission/Chief Complaint: Possible Onset of Labor Comment: pt states has had pressure and contractions 3-11 minutes apart for 2 days. Medical History - Information : 5 Para: 4 Term: 3 : 1 Abortions: Spontaneous or Elective: 0 Number of Living Children: 3 - Gestational Age Gestational Age by TRISTIAN (wks/days): 33 Weeks and 1 Days - History Complications: Prior , Prior Review of Systems - Review of Systems Constitutional: No problems Breast: No problems ENT: No problems Cardiovascular: No problems Respiratory: No problems Gastrointestinal: No problems Genitourinary: No problems Musculoskeletal: No problems Neurological: No problems Skin: No problems Vital Signs - Temperature Temperature: 97.0 F Temperature Source: Temporal Artery Scan - Pulse Right Sitting Brachial Pulse Rate: 97 Pulse Assessment Method: Automatic Cuff - Respirations Respiratory Rate: 16 Oxygen Delivery Method: Room Air O2 Sat by Pulse Oximetry: 99 - Blood Pressure Right Arm Sitting Blood Pressure: 123/77 Blood Pressure Mean: 92 Blood Pressure Source: Automatic Cuff Medical Screen Scoring - Cervical Exam Dilation (cm): 0 Effacement (%): 0 Membranes: Intact - Assessment - Baby A Baseline FHR: 115 Heart Rate - NICHD Category: Category I (Normal) NST: Reactive Physician Notification - Physician Notified Physician Notified Date: 05/23/21 Physician Notified Time: 03:54 Physician: Dianne Landeros Order Received: Yes Maternal Triage Index - Maternal Triage Index Presenting for scheduled procedure w/no complaint: No - Stat/Priority 1 Stat Priority 1: No - Urgent/Priority 2 Urgent Priority 2: No - Prompt/Priority 3 Prompt Priority 3: No - Non-Urgent/Priority 4 Non-Urgent Priority 4: Yes Criteria Met for Priority 4: discomfort and pressure Disposition - Disposition OB Disposition: Discharge to home, Written follow up instructions reviewed Discharge Date: 05/23/21 Discharge Time: 04:15 I agree with the RN Medical Screening Exam: Yes Case reviewed; plan agreed upon as documented in EMR&OBIX.: Yes Diagnosis: FALSE LABOR BEFORE 37 COMPLETED WEEKS OF GEST, THIRD TRI
== END 2021-05-23 04:15 | disposition home or self-care (01) ==
LOC: FBPOP 03:07
PROVIDERS: ATTEND Obstetrics & Gynecology
DX: O47.03 False labor before 37 completed weeks of gestation, third trimester (principal); Z3A.33 33 weeks gestation of pregnancy
CPT/HCPCS: 59025; 81001; G0463; 99213

== ENCOUNTER 2021-07-06 05:58 | Inpatient (IN) | payer OTHER ==
[2021-07-01 14:21] VITALS: BMI 32.9
[2021-07-06] MEDS ORDERED: OXYTOCIN 10 UNIT/ML 1 ML VIAL IM PRN (06:45)
[2021-07-06] MEDS ORDERED: METHYLERGONOVINE 0.2 MG/ML 1 ML AMP IM PRN (06:45)
[2021-07-06] MEDS ORDERED: OXYTOCIN 30 UNITS/500 ML NS 30 UNIT in SALINE 1 500ML.BAG IV SCH (06:45)
[2021-07-06] MEDS ORDERED: CARBOPROST TROMETHAMINE 250 MCG/ML 1 ML AMP IM PRN (06:45)
[2021-07-06] MEDS ORDERED: TERBUTALINE 1 MG/ML VIAL SQ PRN (06:45)
[2021-07-06] MEDS ORDERED: LIDOCAINE 0.5% (PF) 5 MG/ML (50 ML SDV) SQ PRN (06:45)
[2021-07-06] MEDS ORDERED: CLINDAMYCIN 900 MG in DEXTROSE 5% IN WATER 50 ML IVPB STA ×2 (06:52)
[2021-07-06] MEDS: LACTATED RINGERS 1,000 ML IV SCH ×2 (07:01→15:49)
[2021-07-06 07:15] LABS: Basophils # (A) 0.1 k/uL (0-0.2); Basophils % (A) 0 %; Eosinophils # (A) 0.3 k/uL (0-0.7); Eosinophils % (A) 2 %; HCT 35.3 % (34.0-46.0); HGB 12.1 gm/dL (11.4-16.0); Lymphocytes # (A) 2.5 k/uL (1.0-4.8); Lymphocytes % (A) 19 %; MCH 32.6 pg (25.0-35.0); MCHC 34.4 g/dL (31.0-37.0); MCV 94.8 fL (80.0-100.0); Mean Platelet Volume 8.1; Monocytes # (A) 0.6 k/uL (0-1.0); Monocytes % (A) 5 %; Neutrophils # (A) 9.5 k/uL (1.3-7.7); Neutrophils % (A) 72 %; Platelet Count 257 k/uL (150-450); RBC 3.72 m/uL (3.80-5.40); RDW 13.1 % (11.5-15.5); WBC 13.1 k/uL (3.8-10.6)
[2021-07-06] MEDS ORDERED: CITRIC ACID-SODIUM CITRATE 15 ML CUP PO ONE (07:22)
[2021-07-06] MEDS ORDERED: MORPHINE SULFATE (PF) 0.3 MG/0.3 ML SYR ONE (08:04)
[2021-07-06] MEDS ORDERED: ONDANSETRON 4 MG/2 ML VIAL ONE (08:04)
[2021-07-06] MEDS ORDERED: NALBUPHINE 10 MG/ML (1 ML AMP) ONE (08:04)
[2021-07-06] MEDS ORDERED: ePHEDrine 50 MG/ML 1 ML AMP ONE (08:04)
[2021-07-06] MEDS ORDERED: KETOROLAC 15 MG/ML 1 ML VIAL ONE (08:04)
[2021-07-06] MEDS ORDERED: OXYTOCIN 30 UNITS/500 ML NS BAG IV ONE (08:04)
[2021-07-06] MEDS ORDERED: ONDANSETRON 4 MG/2 ML VIAL IVP PRN ×2 (08:44→08:48)
[2021-07-06] MEDS ORDERED: KETOROLAC 15 MG/ML 1 ML VIAL IVP PRN (08:44)
[2021-07-06] MEDS ORDERED: HYDROmorphone 0.5 MG/0.5 ML SYRINGE IVP PRN (08:44)
[2021-07-06] MEDS ORDERED: NALOXONE 0.4 MG/ML 1 ML VIAL IV PRN ×2 (08:44→08:48)
[2021-07-06] MEDS ORDERED: NALBUPHINE 10 MG/ML (1 ML AMP) IV PRN (08:44)
[2021-07-06] MEDS ORDERED: diphenhydrAMINE 50 MG/ML 1 ML VIAL IVP PRN ×3 (08:44→08:48)
[2021-07-06] MEDS ORDERED: diphenhydrAMINE 50 MG CAP PO PRN (08:48)
[2021-07-06] MEDS ORDERED: METOCLOPRAMIDE 5 MG/ML 2 ML VIAL IVP PRN (08:48)
[2021-07-06] MEDS ORDERED: diphenhydrAMINE 25 MG CAP PO PRN (08:48)
[2021-07-06] MEDS ORDERED: ZOLPIDEM 5 MG TAB PO PRN (08:48)
--- NOTE | 2021-07-06 08:51 | P.HPOB ---
History of Present Illness H&P Date: 07/06/21 Chief Complaint: Intrauterine at term: Family planning: Prior sections Page is a 25-year-old at 39 weeks 3 days' gestation who arrives for repeat low transverse section and bilateral tubal occlusion with Filshie clips. Risks/benefits/alternatives to this procedure were reviewed with patient in detail and all questions were answered for her prior to proceeding to the operating room. Her course was, complicated by suspected vickie yhydramnios near the end the but it stabilized at the end of the . A torch titers was done. And were negative. Pertinent labs include O+ blood type, Rh and it was negative, rubella was immune, hepatitis B surface antigen/RPR and HIV were also negative. Her torch titers are not on the chart. Nonstress tests were also done at the end of the for polyhydramnios. Nonstress test this morning was reactive as well. All questions are answered for both she and her prior to proceeding to the operating room. Past Medical History Past Medical History: No Reported History Additional Past Medical History / Comment(s): BACK PAIN, KIDNEY INFECTIONS, HEART MURMUR, ovarian cysts History of Any Multi-Drug Resistant Organisms: None Reported Past Surgical History: Section Additional Past Surgical History / Comment(s): C-SEC X 3 and wisdom teeth removal Past Anesthesia/Blood Transfusion Reactions: No Reported Reaction Past Psychological History: Anxiety, Bipolar, Depression Additional Psychological History / Comment(s): Bipolar type 2 Smoking Status: Current every day smoker Past Alcohol Use History: None Reported Additional Past Alcohol Use History / Comment(s): Pt reports smoking 1/2 pack per day Past Drug Use History: None Reported - Past Family History Mother Family Medical History: No Reported History Medications and Allergies Home Medications Medication Instructions Recorded Confirmed Type No Known Home Medications 07/01/21 07/01/21 History Allergies Allergy/AdvReac Type Severity Reaction Status Date / Time latex Allergy Rash/Hives Verified 07/01/21 14:14 venom-honey bee Allergy Anaphylaxis Verified 07/01/21 14:14 [bee venom (honey bee)] cephalexin monohydrate AdvReac Nausea & Verified 07/01/21 14:14 [From Keflex] Vomiting Exam Osteopathic Statement: *. No significant issues noted on an osteopathic structural exam other than those noted in the History and Physical/Consult. Vital Signs Temp Pulse Resp BP Pulse Ox 07/06/21 06:39 96.5 F L 91 16 120/81 98 Intake and Output 07/05/21 07/06/21 07/06/21 22:59 06:59 14:59 Other: Weight 89.811 kg - OBG Physical Exam Breast: both: normal (no masses) Abdomen: bowel sounds normal, no diffuse tenderness, no bruit present, no guarding noted, no hepatomegaly, no splenomegaly, no mass Vulva: both: normal Vagina: normal moisture, no discharge Cervix: no lesion, no discharge Uterus: normal size, normal contour Adnexa: both: normal Anus/Rectum: normal perianal skin, no rectal mass, no hemorrhoids, heme negative Results Result Diagrams: 07/06/21 06:55 Abnormal Lab Results - Last 24 Hours (Table) 07/06/21 Range/Units 06:55 WBC 13.1 H (3.8-10.6) k/uL RBC 3.72 L (3.80-5.40) m/uL Neutrophils # 9.5 H (1.3-7.7) k/uL
--- NOTE | 2021-07-06 08:57 | P.OP ---
Date of Procedure: 07/06/21 Preoperative Diagnosis: Intrauterine at term: Prior surgery and section: Family planning Postoperative Diagnosis: Same with 6 cm right ovarian cyst Procedure(s) Performed: Repeat low transverse section with bilateral tubal occlusion Filshie clips and right ovarian cystectomy Anesthesia: spinal Surgeon: Karl Ely Garden Consultant #1: Ry Gan Estimated Blood Loss (ml): 400 IV fluids (ml): 800 Urine output (ml): 250 Pathology: other (Right ovarian cyst) Condition: stable Disposition: floor Operative Findings: Grossly enlarged right ovarian cyst approximately 6 cm. Attempts at lithotomy were done but it was mucinous and therefore it was removed Description of Procedure: Patient was taken to the operating suite where a spinal anesthetic was found be adequate. She was prepped and draped in normal sterile fashion and placed in dorsal supine position with leftward tilt. Initially a Pfannenstiel skin incision was made, and this incision was then carried through to the underlying layer of the fascia was second knife. Fascia was then nicked in the midline and this opening was extended laterally with Douglas scissors. Superior and inferior aspect of this incision were then grasped tented up and bluntly and sharply dissected off the rectus muscles. Rectus muscles were then divided midline and following entry into the peritoneum and this opening was extended superiorly and inferiorly with good visualization of both bowel bladder. Bladder blade was then placed and bladder flap identified. It was entered sharply with Metzenbaums scissors and carried across face uterus. Latter was and bluntly dissected out of the operative field. Knife was then used to incise uterus and this incision was then extended bluntly following full development with a hemostat. Once this was completed head was atraumatically delivered and a nuchal cord 1 was noted and easily reduced. Remainder baby was then delivered mouth nares bulb suctioned and nursery personnel present to assume care with clamping and cutting of the umbilical cord. Blood was obtained from cord for O+ blood type. Placenta was then delivered intact Pitocin was added to the IV. Uterus was then exteriorized cleared of clots and debris and closed in 1 layer with 0 Vicryl suture. Once excellent hemostasis was obtained tissues were applied to the fallopian tubes bilaterally 2-3 cm from uterine cornu. On suctioning blood and debris from the posterior cul-de-sac the right ovary was actually elevated out of the pelvis for the first time and a large right ovarian cyst was noted approximately 6 cm. Initially it appeared simple cystic and was therefore incised with Bovie cautery immediately clear mucinous material was brought forth and as it was more of a concern that this would be a recurrent's mucinous cystadenoma it was excised would leave in total by clamping with Court clamps across the pedicle of the cyst and right at the level of the ovary and then excising this the cyst. 0 Vicryl sutures then used to obtain excellent hemostasis across the ovary. Uterus was then reinserted the abdomen and a piece of Interceed was placed over the ovary. Peritoneal layer was then re- approximately 0 Vicryl suture. Fascial layers close with 0 Vicryl suture. One layer of 3-0 Vicryl was placed in deep subcuticular tissues to reapproximate skin and close space. Skin was then closed particular with 3-0 Vicryl. Sponge, lap, needle counts were all correct 2. Patient was then taken to the recovery room in stable and satisfactory condition.
[2021-07-06] MEDS ORDERED: CLINDAMYCIN 900 MG in DEXTROSE 5% IN WATER 50 ML IVPB SCH ×2 (15:00)
[2021-07-06] MEDS: KETOROLAC 15 MG/ML 1 ML VIAL IVP SCH ×2 (15:39→21:11)
[2021-07-06] MEDS: SENNOSIDES-DOCUSATE SODIUM 1 EACH TAB PO SCH (23:57)
[2021-07-07] MEDS: ACETAMINOPHEN TAB 500 MG TAB PO SCH ×5 (02:10→22:40)
[2021-07-07] MEDS: LACTATED RINGERS 1,000 ML IV SCH ×4 (03:15→09:30)
[2021-07-07] MEDS: KETOROLAC 15 MG/ML 1 ML VIAL IVP SCH (04:13)
[2021-07-07 06:37] LABS: Basophils % (A) 0 %; Eosinophils # (A) 0.3 k/uL (0-0.7); Eosinophils % (A) 2 %; HCT 31.2 % (34.0-46.0); HGB 10.8 gm/dL (11.4-16.0); Lymphocytes # (A) 1.8 k/uL (1.0-4.8); Lymphocytes % (A) 14 %; MCH 33.5 pg (25.0-35.0); MCHC 34.6 g/dL (31.0-37.0); Mean Platelet Volume 8.4; Monocytes # (A) 0.7 k/uL (0-1.0); Monocytes % (A) 6 %; Neutrophils # (A) 9.7 k/uL (1.3-7.7); Neutrophils % (A) 76 %; Platelet Count 199 k/uL (150-450); RBC 3.22 m/uL (3.80-5.40); RDW 13.1 % (11.5-15.5); WBC 12.8 k/uL (3.8-10.6)
--- NOTE | 2021-07-07 06:54 | P.PN ---
Progress Note - Text Progress Note Date: 07/07/21 Pt POD 1 from and tubal ligation and received a spinal with duramoprh for her anesthetic. Patient reports pain is adequately controlled oral pain medicine. Patient has been up walking around and using the restroom without difficulty. Patient denies LEMUS, N/V, fever, chills, dizziness. Procedure site is clean and dry. Continue to follow.
[2021-07-07] MEDS: SENNOSIDES-DOCUSATE SODIUM 1 EACH TAB PO SCH ×2 (08:25→19:17)
--- NOTE | 2021-07-07 08:25 | P.PNOBGPC ---
Subjective - Subjective Principal diagnosis: Postop day 1 Interval history: Patient is doing very well this morning. She is involuting, voiding and tolerating her diet. She voices no complaints other than some increase in pain and lower quadrant which is potentially due to the cystectomy that was performed at the time of the section. Otherwise she is doing well. Patient reports: Reports appetite normal, Reports voiding normally, Reports pain well controlled, Reports ambulating normally [place]: doing well Objective - Vital Signs Latest vital signs: Vital Signs Temp Pulse Resp BP Pulse Ox 07/07/21 05:00 16 07/07/21 04:00 98.6 F 73 14 113/72 96 07/07/21 03:00 16 07/07/21 01:00 16 07/06/21 23:54 98.2 F 65 16 94/56 97 07/06/21 23:00 16 07/06/21 22:00 97 07/06/21 21:00 16 07/06/21 20:00 97.9 F 59 L 16 93/55 100 07/06/21 19:00 16 07/06/21 17:00 16 98 07/06/21 16:00 98.3 F 56 L 16 96/49 98 07/06/21 15:00 16 07/06/21 14:00 98 07/06/21 12:46 16 07/06/21 12:00 97.4 F L 62 16 99/61 98 07/06/21 10:55 97.4 F L 62 16 107/55 98 07/06/21 10:25 61 16 122/57 98 07/06/21 09:55 97.2 F L 57 L 16 115/56 98 07/06/21 09:45 16 98 07/06/21 09:40 59 L 16 107/57 98 07/06/21 09:24 61 16 105/59 98 07/06/21 09:10 61 16 104/62 99 07/06/21 08:55 97.0 F L 69 16 104/70 100 Intake and Output 07/06/21 07/07/21 07/07/21 22:59 06:59 14:59 Output Total 6000 950 Balance -6000 -950 Output: Urine 6000 950 Uretheral (Jack) 2000 Other: # Voids 1 - Exam Lungs: bilateral: normal Chest: Normal S1, Normal S2 Extremities: Present: normal Abdomen: Present: normal appearance, soft. Absent: distention, tenderness Incision: Present: normal, dry, intact Uterus: Present: normal, firm - Labs Labs: Abnormal Lab Results - Last 24 Hours (Table) 07/07/21 Range/Units 05:56 WBC 12.8 H (3.8-10.6) k/uL RBC 3.22 L (3.80-5.40) m/uL Hgb 10.8 L (11.4-16.0) gm/dL Hct 31.2 L (34.0-46.0) % Neutrophils # 9.7 H (1.3-7.7) k/uL
[2021-07-07] MEDS: IBUPROFEN 600 MG TAB PO SCH ×2 (13:24→19:17)
[2021-07-07] MEDS: HYDROmorphone 2 MG TAB PO PRN (16:41)
[2021-07-07 20:42] VITALS: RESP 16
[2021-07-08] MEDS: HYDROmorphone 2 MG TAB PO PRN (01:04)
[2021-07-08] MEDS: IBUPROFEN 600 MG TAB PO SCH (04:39)
[2021-07-08] MEDS: SENNOSIDES-DOCUSATE SODIUM 1 EACH TAB PO SCH (08:20)
[2021-07-08] MEDS: ACETAMINOPHEN TAB 500 MG TAB PO SCH ×2 (08:20→09:39)
--- NOTE | 2021-07-08 08:24 | P.DS ---
Providers Date of admission: 07/06/21 05:58 Expected date of discharge: 07/08/21 Attending physician: Karl Ely Primary care physician: Stated None Hospital Course: Patient is doing very well this morning postop day 2. She is ambulating, voiding and tolerating her diet. She voices no complaints and is requesting discharge home today. Prescription for Motrin and [place] for to the pharmacy. She will follow me in 1 week. On physical exam vital signs are stable and she is afebrile. Heart regular, lungs clear, extremities are without pain. Abdomen is soft and uterus is firm. Her incision is clean dry and intact. Assessment postop day 2. Plan discharged home follow up with me in 1 week. Patient Condition at Discharge: Good Plan - Discharge Summary Discharge Rx Participant: Yes New Discharge Prescriptions: New HYDROcodone/APAP 5-325MG [[place] 5-325] 1 tab PO Q4HR PRN #20 tab PRN Reason: Pain Ibuprofen [Motrin] 600 mg PO Q6HR PRN #30 tab PRN Reason: Pain Discharge Medication List HYDROcodone/APAP 5-325MG [[place] 5-325] 1 tab PO Q4HR PRN #20 tab 07/08/21 [Rx] Ibuprofen [Motrin] 600 mg PO Q6HR PRN #30 tab 07/08/21 [Rx] Follow up Appointment(s)/Referral(s): Karl Ely DO [Doctor of Osteopathic Medicine] - 1 Week Activity/Diet/Wound Care/Special Instructions: Lifting, limit stairs and driving, and pelvic rest. If any high temperatures, heavy bleeding, or severe pain call my office Discharge Disposition: HOME SELF-CARE
[2021-07-08 09:39] VITALS: BP 109/57; PULSE 64; TEMP 98
== END 2021-07-08 10:10 | disposition home or self-care (01) | DRG 784 ==
LOC: 4FBP 05:58
PROVIDERS: ADMIT Obstetrics & Gynecology; ATTEND Obstetrics & Gynecology
PROC: 10D00Z1 Extraction of Products of Conception, Low, Open Approach (ICD-10-PCS; principal; 2021-07-06 08:00)
PROC: 0UB00ZZ Excision of Right Ovary, Open Approach (ICD-10-PCS; principal; 2021-07-06 08:00)
PROC: 0UL70CZ Occlusion of Bilateral Fallopian Tubes with Extraluminal Device, Open Approach (ICD-10-PCS; principal; 2021-07-06 08:00)
DX: O34.211 Maternal care for low transverse scar from previous cesarean delivery (principal); F31.81 Bipolar II disorder; F17.210 Nicotine dependence, cigarettes, uncomplicated; O99.334 Smoking (tobacco) complicating childbirth; O40.3XX0 Polyhydramnios, third trimester, not applicable or unspecified; O34.83 Maternal care for other abnormalities of pelvic organs, third trimester; N83.201 Unspecified ovarian cyst, right side; O99.344 Other mental disorders complicating childbirth; N85.8 Other specified noninflammatory disorders of uterus; Z30.2 Encounter for sterilization; Z37.0 Single live birth; Z3A.39 39 weeks gestation of pregnancy; Z87.440 Personal history of urinary (tract) infections; Z98.818 Other dental procedure status; Z88.1 Allergy status to other antibiotic agents; Z91.030 Bee allergy status; Z91.040 Latex allergy status
CPT/HCPCS: 85025; 86850; 86900; 86901; 88307

== ENCOUNTER 2023-08-11 19:42 | Emergency (ER) | payer OTHER ==
[2023-08-11 20:12] VITALS: TEMP 98.3
--- NOTE | 2023-08-11 23:13 | ED ---
General Adult HPI - General Source: patient, RN notes reviewed Mode of arrival: ambulatory Limitations: no limitations <Jjuu Babcock - Last Filed: 08/11/23 23:07> <Marylu Calixto - Last Filed: 08/12/23 02:33> - General Chief complaint: Abdominal Pain Stated complaint: Pelvic Pain Time Seen by Provider: 08/11/23 23:10 - History of Present Illness Initial comments: 27 year old female presents to the emergency department for chief complaint of left lower abdominal pain. She states that she has a history of ovarian cancer with left ovary removal in 2021. She states that she had similar pain at that time. She does report that she has had dull pain for a while but noticed the pain is sharp today radiating to her left upper abdomen and down her left leg. Denies fever. Admits to nausea x3 days. (Juju Babcock) Note reviewed: This is a 27-year-old female with no significant past medical history who presents the emergency department with a chief complaint of left lower abdominal pain. She reports worsening pain that she describes as a dull ache that is constant. She reports the pain as a 2 out of 10. It does radiate to the left upper abdomen and down her left leg. She denies any known fever, cough, chills, chest pain or palpitations dizziness lightheadedness or fatigue. She is complaining of accompanying nausea. Of note she has a history of an ovarian tumor with a partial hysterectomy performed in 2021. (Marylu Calixto) - Related Data Previous Rx's Medication Instructions Recorded HYDROcodone/APAP 5-325MG [[place] 1 tab PO Q4HR PRN #20 tab 07/08/21 5-325] Ibuprofen [Motrin] 600 mg PO Q6HR PRN #30 tab 07/08/21 Ondansetron Odt [Zofran Odt] 4 mg PO Q12HR PRN #15 tab 08/12/23 Allergies Allergy/AdvReac Type Severity Reaction Status Date / Time latex Allergy Rash/Hives Verified 08/11/23 19:53 venom-honey bee Allergy Anaphylaxis Verified 08/11/23 19:53 [bee venom (honey bee)] cephalexin monohydrate AdvReac Nausea & Verified 08/11/23 19:53 [From Keflex] Vomiting Review of Systems ROS Other: All systems not noted in ROS Statement are negative. <Juju Babcock - Last Filed: 08/11/23 23:07> ROS Other: All systems not noted in ROS Statement are negative. <Marylu Calixto - Last Filed: 08/12/23 02:33> ROS Statement: Those systems with pertinent positive or pertinent negative responses have been documented in the HPI. Past Medical History Past Medical History: No Reported History Additional Past Medical History / Comment(s): BACK PAIN, KIDNEY INFECTIONS, HEART MURMUR, ovarian cysts History of Any Multi-Drug Resistant Organisms: None Reported Past Surgical History: Section Additional Past Surgical History / Comment(s): C-SEC X 3 and wisdom teeth removal, left ovary removal Past Anesthesia/Blood Transfusion Reactions: No Reported Reaction Past Psychological History: Anxiety, Bipolar, Depression Smoking Status: Vaper Past Alcohol Use History: None Reported Past Drug Use History: None Reported - Past Family History Mother Family Medical History: No Reported History <Juju Babcock - Last Filed: 08/11/23 23:07> General Exam Limitations: no limitations <Juju Babcock - Last Filed: 08/11/23 23:07> <Marylu Calixto - Last Filed: 08/12/23 02:33> - General Exam Comments Initial Comments: Visual Physical Exam Vital signs reviewed General: Well-appearing, nontoxic, no acute distress. Head: Normocephalic, atraumatic Eyes: PERRLA, EOMI ENT: Airway patent Chest: Nonlabored breathing Skin: No visual rash, normal skin tone Neuro: Alert and oriented 3 Musculoskeletal: No gross abnormalities (Juju Babcock) General: Alert, in no acute distress Head: atraumatic normocephalic. Eyes PERRL, EOMI intact, mucous membranes moist Respiratory: Lungs clear to auscultation bilaterally Cardiovascular: Regular rate and Abdominal: Soft without guarding or rebound, mild left lower quadrant tender ness. Extremities: Normal inspection with full range of motion and normal capillary refill Neuroogic: alert and oriented 3, CN II-XII intact, able to ambulate with steady gait Skin: warm dry and intact with normal color (Marylu Calixto) Course Vital Signs 08/11/23 08/12/23 19:51 02:20 Temperature 98.3 F Pulse Rate 81 58 L Respiratory 18 19 Rate Blood Pressure 145/77 120/70 O2 Sat by Pulse 99 98 Oximetry Medical Decision Making <Juju Babcock - Last Filed: 08/11/23 23:07> - Lab Data Result diagrams: 08/11/23 23:30 08/11/23 23:30 <WescharbelMarylu baxter - Last Filed: 08/12/23 02:33> - Medical Decision Making Quick note performed by Juju Babcock PA-C (Juju Babcock) Was pt. sent in by a medical professional or institution ([facility], [facility], urgent care, hospital, or fci...) When possible be specific @ -[No] Did you speak to anyone other than the patient for history (EMS, parent, family, police, friend...)? What history was obtained from this source @ -[No] Did you review nursing and triage notes (agree or disagree)? Why? @ -[I reviewed and agree with nursing and triage notes] Were old charts reviewed (outside hosp., previous admission, EMS record, old EKG, old radiological studies, urgent care reports/EKG's, fci records)? Report findings @ -[No old charts were reviewed] Differential Diagnosis (chest pain, altered mental status, abdominal pain women, abdominal pain men, vaginal bleeding, weakness, fever, dyspnea, syncope, headache, dizziness, GI bleed, back pain, seizure, CVA, palpatations, mental health, musculoskeletal)? @ -[not applicable] EKG interpreted by me (3pts min.). @ -[As above] X-rays interpreted by me (1pt min.). @ -[None done] CT interpreted by me (1pt min.). @ -[None done] U/S interpreted by me (1pt. min.). @ -[None done] What testing was considered but not performed or refused? (CT, X-rays, U/S, labs)? Why? @ -CT was considered however this studies are unremarkable. What meds were considered but not given or refused? Why? @ -[None] Did you discuss the management of the patient with other professionals (professionals i.e. [facility], [facility], lab, RT, psych nurse, social sciences lecturer, headrig sawyer, teacher, [employer] officer, pillowcase cleaner)? Give summary @ -[No] Was smoking cessation discussed for >3mins.? @ -[No] Was critical care preformed (if so, how long)? @ -[No] Were there social determinants of health that impacted care today? How? (Homelessness, low income, unemployed, alcoholism, drug addiction, transportation, low edu. Level, literacy, decrease access to med. care, shelter, rehab)? @ -[No] Was there de-escalation of care discussed even if they declined (Discuss DNR or withdrawal of care, Hospice)? DNR status @ -[No] What co-morbidities impacted this encounter? (DM, HTN, Smoking, COPD, CAD, Cancer, CVA, ARF, Chemo, Hep., AIDS, mental health diagnosis, sleep apnea, morb id obesity)? @ -[None] Was patient admitted / discharged? Hospital course, mention meds given and route, prescriptions, significant lab abnormalities, going to OR and other pertinent info. @ -Discharged. This is a 27-year-old female who presents the emergency department with a chief complaint of abdominal pain. Patient is a thorough history and physical exam performed. Vital signs are stable upon evaluation. Patient is afebrile. Patient heart rate regular rate and rhythm, lungs clear to auscultation bilaterally abdomen has mild left lower quadrant abdominal tenderness. No rebound or guarding. Patient had laboratory studies which were unremarkable. Lactic acid 2.2. Patient was given 1 L IV fluids and Toradol with symptomatic improvement. Patient be discharged in stable condition. Recommend close follow-up with PCP in 1-2 days. Return precautions discussed at length. Case is discussed with Dr. Gilmore Isreal who agrees with plan of care Undiagnosed new problem with uncertain prognosis? @ -[No] Drug Therapy requiring intensive monitoring for toxicity (Heparin, Nitro, Insulin, Cardizem)? @ -[No] Were any procedures done? @ -[No] Diagnosis/symptom? @ -Abdominal Pain Acute, or Chronic, or Acute on Chronic? @ -Acute Uncomplicated (without systemic symptoms) or Complicated (systemic symptoms)? @ -Uncomplicated Side effects of treatment? @ -[No] Exacerbation, Progression, or Severe Exacerbation? @ -[No] Poses a threat to life or bodily function? How? (Chest pain, [place], NH, pneumonia, PE, COPD, DKA, ARF, appy, cholecystitis, CVA, Diverticulitis, Homicidal, Suicidal, threat to staff... and all critical care pts) @ -Low likelihood (Marylu Calixto) - Lab Data Lab Results 08/11/23 08/11/23 08/11/23 Range/Units 23:30 23:30 23:30 WBC 9.5 (3.8-10.6) k/uL RBC 4.06 (3.80-5.40) m/uL Hgb 12.7 (11.4-16.0) gm/dL Hct 36.7 (34.0-46.0) % MCV 90.5 (80.0-100.0) fL MCH 31.3 (25.0-35.0) pg MCHC 34.6 (31.0-37.0) g/dL RDW 13.1 (11.5-15.5) % Plt Count 357 (150-450) k/uL MPV 7.9 Neutrophils % 66 % Lymphocytes % 24 % Monocytes % 5 % Eosinophils % 2 % Basophils % 1 % Neutrophils # 6.3 (1.3-7.7) k/uL Lymphocytes # 2.3 (1.0-4.8) k/uL Monocytes # 0.5 (0-1.0) k/uL Eosinophils # 0.2 (0-0.7) k/uL Basophils # 0.1 (0-0.2) k/uL Sodium 139 (137-145) mmol/L Potassium 4.3 (3.5-5.1) mmol/L Chloride 104 (98-107) mmol/L Carbon Dioxide 25 (22-30) mmol/L Anion Gap 10 mmol/L BUN 11 (7-17) mg/dL Creatinine 0.69 (0.52-1.04) mg/dL Est GFR (CKD-EPI)AfAm >90 (>60 ml/min/1.73 sqM) Est GFR (CKD-EPI)NonAf >90 (>60 ml/min/1.73 sqM) Glucose 122 H (74-99) mg/dL Plasma Lactic Acid Tam 2.2 H* (0.7-2.0) mmol/L Calcium 9.3 (8.4-10.2) mg/dL Total Bilirubin 0.7 (0.2-1.3) mg/dL AST 34 (14-36) U/L ALT 12 (4-34) U/L Alkaline Phosphatase 51 (38-126) U/L Total Protein 7.3 (6.3-8.2) g/dL Albumin 4.4 (3.5-5.0) g/dL Amylase 37 (30-110) U/L Lipase 58 (23-300) U/L HCG, Quant mIU/mL Urine Color Urine Appearance (Clear) Urine pH (5.0-8.0) Ur Specific [place] (1.001-1.035) Urine Protein (Negative) Urine Glucose (UA) (Negative) Urine Ketones (Negative) Urine Blood (Negative) Urine Nitrite (Negative) Urine Bilirubin (Negative) Urine Urobilinogen (<2.0) mg/dL Ur Leukocyte Esterase (Negative) Urine HCG, Qual (Not Detectd) 08/11/23 08/12/23 08/12/23 Range/Units 23:30 00:15 00:15 WBC (3.8-10.6) k/uL RBC (3.80-5.40) m/uL Hgb (11.4-16.0) gm/dL Hct (34.0-46.0) % MCV (80.0-100.0) fL MCH (25.0-35.0) pg MCHC (31.0-37.0) g/dL RDW (11.5-15.5) % Plt Count (150-450) k/uL MPV Neutrophils % % Lymphocytes % % Monocytes % % Eosinophils % % Basophils % % Neutrophils # (1.3-7.7) k/uL Lymphocytes # (1.0-4.8) k/uL Monocytes # (0-1.0) k/uL Eosinophils # (0-0.7) k/uL Basophils # (0-0.2) k/uL Sodium (137-145) mmol/L Potassium (3.5-5.1) mmol/L Chloride (98-107) mmol/L Carbon Dioxide (22-30) mmol/L Anion Gap mmol/L BUN (7-17) mg/dL Creatinine (0.52-1.04) mg/dL Est GFR (CKD-EPI)AfAm (>60 ml/min/1.73 sqM) Est GFR (CKD-EPI)NonAf (>60 ml/min/1.73 sqM) Glucose (74-99) mg/dL Plasma Lactic Acid Tam (0.7-2.0) mmol/L Calcium (8.4-10.2) mg/dL Total Bilirubin (0.2-1.3) mg/dL AST (14-36) U/L ALT (4-34) U/L Alkaline Phosphatase (38-126) U/L Total Protein (6.3-8.2) g/dL Albumin (3.5-5.0) g/dL Amylase (30-110) U/L Lipase (23-300) U/L HCG, Quant <2.4 mIU/mL Urine Color Yellow Urine Appearance Clear (Clear) Urine pH 6.5 (5.0-8.0) Ur Specific [place] 1.020 (1.001-1.035) Urine Protein Negative (Negative) Urine Glucose (UA) Negative (Negative) Urine Ketones Negative (Negative) Urine Blood Negative (Negative) Urine Nitrite Negative (Negative) Urine Bilirubin Negative (Negative) Urine Urobilinogen <2.0 (<2.0) mg/dL Ur Leukocyte Esterase Negative (Negative) Urine HCG, Qual Not Detected (Not Detectd) Disposition <Juju Babcock - Last Filed: 08/11/23 23:07> Is patient prescribed a controlled substance at d/c from ED?: No Time of Disposition: 02:09 <Marylu Calixto - Last Filed: 08/12/23 02:33> Clinical Impression: Abdominal pain Disposition: HOME SELF-CARE Condition: Stable Instructions (If sedation given, give patient instructions): Acute Nausea and Vomiting (ED), Abdominal Pain (ED) Additional Instructions: PLease monitor your symptoms closely Return if high fever, worsening pain or nausea develop Prescriptions: Ondansetron Odt [Zofran Odt] 4 mg PO Q12HR PRN #15 tab PRN Reason: Nausea Referrals: None,Stated [Primary Care Provider] - 1-2 days Forms: [facility] PCPs
[2023-08-11 23:46] LABS: Basophils # (A) 0.1 k/uL (0-0.2); Basophils % (A) 1 %; Eosinophils # (A) 0.2 k/uL (0-0.7); Eosinophils % (A) 2 %; HCT 36.7 % (34.0-46.0); HGB 12.7 gm/dL (11.4-16.0); Lymphocytes # (A) 2.3 k/uL (1.0-4.8); Lymphocytes % (A) 24 %; MCH 31.3 pg (25.0-35.0); MCHC 34.6 g/dL (31.0-37.0); MCV 90.5 fL (80.0-100.0); Mean Platelet Volume 7.9; Monocytes # (A) 0.5 k/uL (0-1.0); Monocytes % (A) 5 %; Neutrophils # (A) 6.3 k/uL (1.3-7.7); Neutrophils % (A) 66 %; Platelet Count 357 k/uL (150-450); RBC 4.06 m/uL (3.80-5.40); RDW 13.1 % (11.5-15.5); WBC 9.5 k/uL (3.8-10.6)
[2023-08-12] MEDS ORDERED: KETOROLAC 15 MG/ML 1 ML VIAL IVP STA (00:04)
[2023-08-12] MEDS ORDERED: SODIUM CHLORIDE 0.9% 1,000 ML IV ONE (00:04)
[2023-08-12 00:20] LABS: ALT 12 U/L (4-34); AST 34 U/L (14-36); African American GFR (CKD) >90 (>60 ml/min/1.73 sqM); Albumin 4.4 g/dL (3.5-5.0); Alkaline Phosphatase 51 U/L (38-126); Amylase 37 U/L (30-110); Anion Gap 10 mmol/L; Blood Urea Nitrogen 11 mg/dL (7-17); Calcium 9.3 mg/dL (8.4-10.2); Carbon Dioxide 25 mmol/L (22-30); Chloride 104 mmol/L (98-107); Glucose 122 mg/dL (74-99); Lipase 58 U/L (23-300); Non-African American GFR(CKD) >90 (>60 ml/min/1.73 sqM); Potassium 4.3 mmol/L (3.5-5.1); Sodium 139 mmol/L (137-145); Total Bilirubin 0.7 mg/dL (0.2-1.3); Total Protein 7.3 g/dL (6.3-8.2)
[2023-08-12 01:08] LABS: Appearance,Urine Clear (Clear); Color,Urine Yellow
[2023-08-12 01:09] LABS: Bilirubin,Urine Negative (Negative); Blood,Urine Negative (Negative); Glucose,Urine (UA) Negative (Negative); Ketones,Urine Negative (Negative); Leukocyte Esterase,Urine Negative (Negative); Nitrite,Urine Negative (Negative); PH, Urine 6.5 (5.0-8.0); Protein,Urine Negative (Negative); Urobilinogen,Urine <2.0 mg/dL (<2.0)
[2023-08-12 02:36] VITALS: BP 120/70; PULSE 58; RESP 19
== END 2023-08-12 02:22 | disposition home or self-care (01) ==
LOC: EC 19:42
DX: R10.32 Left lower quadrant pain (principal); F17.290 Nicotine dependence, other tobacco product, uncomplicated; Z91.040 Latex allergy status; Z91.030 Bee allergy status; Z88.1 Allergy status to other antibiotic agents; Z86.59 Personal history of other mental and behavioral disorders
CPT/HCPCS: 36415 ×2; 80053; 82150; 83605; 83690; 85025; 81003; 81025; 84702; 99284; 96374; 96361; J1885

== ENCOUNTER 2024-12-20 21:05 | Observation (INO) | payer OTHER ==
[2024-12-20] MEDS: LACTATED RINGERS 1,000 ML IV ONE (22:22)
[2024-12-20] MEDS: KETOROLAC 15 MG/ML 1 ML VIAL IVP STA (22:23)
[2024-12-20 22:38] LABS: Basophils # (A) 0.04 10*3/uL (0.00-0.10); Basophils % (A) 0.5 %; Eosinophils # (A) 0.22 10*3/uL (0.04-0.35); Eosinophils % (A) 2.6 %; HCT 36.5 % (37.2-46.3); HGB 12.9 g/dL (12.0-15.0); Lymphocytes # (A) 1.41 10*3/uL (0.90-5.00); Lymphocytes % (A) 16.5 %; MCH 32.6 pg (27.0-32.0); MCHC 35.3 g/dL (32.0-37.0); MCV 92.2 fL (80.0-97.0); Mean Platelet Volume 9.6 fL (9.5-12.2); Monocytes # (A) 0.77 10*3/uL (0.20-1.00); Neutrophils # (A) 6.06 10*3/uL (1.80-7.70); Platelet Count 414 10*3/uL (140-440); RBC 3.96 10*6/uL (4.10-5.20); RDW 12.5 % (11.5-14.5); WBC 8.53 10*3/uL (4.50-10.00)
[2024-12-20 22:39] LABS: Appearance,Urine Clear (Clear); Bilirubin,Urine Negative (Negative); Blood,Urine Negative (Negative); Color,Urine Light Yellow; Glucose,Urine (UA) Negative (Negative); Ketones,Urine Negative (Negative); Leukocyte Esterase,Urine Negative (Negative); Nitrite,Urine Negative (Negative); PH, Urine 5.5 (5.0-8.0); Protein,Urine Negative (Negative); Specific Gravity,Urine 1.019 (1.001-1.035)
[2024-12-20 22:53] LABS: ALT 8 U/L (4-34); AST 24 U/L (14-36); African American GFR (CKD) >90 (>60 ml/min/1.73 sqM); Albumin 4.1 g/dL (3.5-5.0); Alkaline Phosphatase 63 U/L (38-126); Anion Gap 7 mmol/L; Blood Urea Nitrogen 17 mg/dL (7-17); Calcium 9.3 mg/dL (8.4-10.2); Carbon Dioxide 27 mmol/L (22-30); Chloride 102 mmol/L (98-107); Glucose 66 mg/dL (74-99); Lipase 51 U/L (23-300); Non-African American GFR(CKD) >90 (>60 ml/min/1.73 sqM); Potassium 4.1 mmol/L (3.5-5.1); Sodium 136 mmol/L (137-145); Total Bilirubin 0.9 mg/dL (0.2-1.3); Total Protein 7.2 g/dL (6.3-8.2)
--- NOTE | 2024-12-20 23:31 | ED ---
Abdominal Pain HPI - General Chief Complaint: Abdominal Pain Stated Complaint: Post-Op Fever Time Seen by Provider: 12/20/24 21:20 Source: patient Mode of arrival: ambulatory Limitations: no limitations - History of Present Illness Initial Comments: 29-year-old female with past medical history of x 3 who presents to the emergency department with lower abdominal pain and fevers. States that 2 weeks ago she had a laparoscopic total hysterectomy by Dr. Pringle at [facility]. Over the past 4 days she has had intermittent fevers with lower abdominal pain. She called Dr. Pringle who [place] the [place] and unable to help care for her. They recommended that the patient go into the nearby emergency department. Patient denies dysuria, hematuria or difficulty voiding. No diarrhea, constipation, black or bloody stools. No nausea or vomiting. Denies cough, congestion, sore throat or ear pain. No abnormal vaginal bleeding or discharge. She did take Motrin at 6 PM tonight before coming in to help control her fever. No other alleviating, precipitating or modifying factors - Related Data Home Medications Medication Instructions Recorded Confirmed Lisdexamfetamine Dimesylate 60 mg PO QAM 12/21/24 12/21/24 [Vyvanse] Sertraline [Zoloft] 100 mg PO DAILY 12/21/24 12/21/24 Previous Rx's Medication Instructions Recorded Amoxic-Pot Clav 875-125Mg 1 tab PO Q12HR 7 Days #14 tab 12/22/24 [Augmentin 875-125] Allergies Allergy/AdvReac Type Severity Reaction Status Date / Time latex Allergy Rash/Hives Verified 12/20/24 21:10 venom-honey bee Allergy Anaphylaxis Verified 12/20/24 21:10 [bee venom (honey bee)] cephalexin monohydrate AdvReac Nausea & Verified 12/20/24 21:10 [From Keflex] Vomiting Review of Systems ROS Statement: Those systems with pertinent positive or pertinent negative responses have been documented in the HPI. ROS Other: All systems not noted in ROS Statement are negative. Past Medical History Past Medical History: No Reported History Additional Past Medical History / Comment(s): BACK PAIN, KIDNEY INFECTIONS, HEART MURMUR, ovarian cysts History of Any Multi-Drug Resistant Organisms: None Reported Past Surgical History: Section, Hysterectomy Additional Past Surgical History / Comment(s): C-SEC X 3 and wisdom teeth removal, left ovary removal Past Anesthesia/Blood Transfusion Reactions: No Reported Reaction Past Psychological History: Anxiety, Bipolar, Depression Smoking Status: Vaper Past Alcohol Use History: None Reported Past Drug Use History: None Reported - Past Family History Mother Family Medical History: No Reported History General Exam Limitations: no limitations General appearance: alert, in no apparent distress Head exam: Present: atraumatic, normocephalic, normal inspection Eye exam: Present: normal appearance, PERRL, EOMI. Absent: scleral icterus, conjunctival injection, periorbital swelling ENT exam: Present: normal exam, mucous membranes moist Neck exam: Present: normal inspection. Absent: tenderness, meningismus, lymphadenopathy Respiratory exam: Present: normal lung sounds bilaterally. Absent: respiratory distress, wheezes, rales, rhonchi, stridor Cardiovascular Exam: Present: regular rate, normal rhythm, normal heart sounds. Absent: systolic murmur, diastolic murmur, rubs, gallop, clicks GI/Abdominal exam: Present: soft, tenderness (Mild lower abdominal tenderness w ithout induration), normal bowel sounds. Absent: distended, guarding, rebound, rigid Extremities exam: Present: normal inspection, full ROM, normal capillary refill. Absent: tenderness, pedal edema, joint swelling, calf tenderness Back exam: Present: normal inspection Neurological exam: Present: alert, oriented X3, CN II-XII intact Psychiatric exam: Present: normal affect, normal mood Skin exam: Present: warm, dry, intact, normal color. Absent: rash Course Vital Signs 12/20/24 12/20/24 12/21/24 21:06 22:48 03:41 Temperature 98.2 F 98.3 F 99.2 F Pulse Rate 104 H 72 Pulse Rate [ 74 Pulse Oximetery ] Respiratory 17 18 16 Rate Blood Pressure 132/83 121/73 Blood Pressure 123/74 [Right Arm] O2 Sat by Pulse 99 99 100 Oximetry 12/21/24 04:15 Temperature 99.9 F H Pulse Rate 76 Pulse Rate [ Pulse Oximetery ] Respiratory 18 Rate Blood Pressure 114/71 Blood Pressure [Right Arm] O2 Sat by Pulse 96 Oximetry Medical Decision Making - Medical Decision Making Was pt. sent in by a medical professional or institution (, PA, CLINICAL HAEMATOLOGIST, urgent care, hospital, or [facility]...) When possible be specific @ -Patient is sent in by her OBGYN Dr. Pringle who cannot care for her due to being out of town Did you speak to anyone other than the patient for history (EMS, parent, family, police, friend...)? What history was obtained from this source @ -No Did you review nursing and triage notes (agree or disagree)? Why? @ -I reviewed and agree with nursing and triage notes Were old charts reviewed (outside hosp., previous admission, EMS record, old EKG, old radiological studies, urgent care reports/EKG's, [facility] records)? Report findings @ -I reviewed the operative note from [facility] from December 05 when patient had her total hysterectomy performed Differential Diagnosis (chest pain, altered mental status, abdominal pain women, abdominal pain men, vaginal bleeding, weakness, fever, dyspnea, syncope, headache, dizziness, GI bleed, back pain, seizure, CVA, palpatations, mental health, musculoskeletal)? @ -Differential Abdominal Pain Women: Appendicitis, Cholecystitis, diverticulosis, ischemic bowel, pancreatitis, hepatitis, UTI, gastroenteritis, AAA, incarcerated hernia, bowel obstruction, constipation, inflammatory bowel, hepatitis, peptic ulcer disease, splenic i nfarction, perforated viscus, vulvitis, ovarian torsion, PID, kidney stone, placenta abruption, this is not meant to be an all-inclusive list EKG interpreted by me (3pts min.). @ -Not done X-rays interpreted by me (1pt min.). @ -None done CT interpreted by me (1pt min.). @ -Yes which demonstrates a large mass in the pelvis concerning for abscess versus seroma versus hematoma U/S interpreted by me (1pt. min.). @ -Pending at this time What testing was considered but not performed or refused? (CT, X-rays, U/S, labs)? Why? @ -None What meds were considered but not given or refused? Why? @ -None Did you discuss the management of the patient with other professionals (professionals i.e. , PA, CLINICAL HAEMATOLOGIST, lab, RT, psych nurse, social worker psychiatric, production machine tender, teacher, aoc director combat plans officer, manager of case)? Give summary @ -Spoke with Dr. Dumont who was agreeable to admitting the patient on IV antibiotics Was smoking cessation discussed for >3mins.? @ -No Was critical care preformed (if so, how long)? @ -No Were there social determinants of health that impacted care today? How? (Homelessness, low income, unemployed, alcoholism, drug addiction, transportation, low edu. Level, literacy, decrease access to med. care, correction, rehab)? @ -No Was there de-escalation of care discussed even if they declined (Discuss DNR or withdrawal of care, Hospice)? DNR status @ -No What co-morbidities impacted this encounter? (DM, HTN, Smoking, COPD, CAD, Cancer, CVA, ARF, Chemo, Hep., AIDS, mental health diagnosis, sleep apnea, morbid obesity)? @ -None Was patient admitted / discharged? Hospital course, mention meds given and route, prescriptions, significant lab abnormalities, going to OR and other pertinent info. @ -Upon arrival patient seen and evaluated in bed 18. Thorough history and physical exam were performed. IV was established. Laboratory studies are conducted. CT was performed which demonstrates a large intra-abdominal cystic structure. There is concern for abscess. Ultrasound is recommended however this cannot be performed until 7 AM as ultrasound is not available at this time. I did call and speak with Dr. Dumont. She was agreeable to admitting the patient and awaiting the ultrasound in the morning. The patient is to be initiated on antibiotics. I did request records from [facility] which will be sent upstairs with the patient. Patient remained in stable condition awaiting a bed on the floor Undiagnosed new problem with uncertain prognosis? @ -No Drug Therapy requiring intensive monitoring for toxicity (Heparin, Nitro, Insulin, Cardizem)? @ -No Were any procedures done? @ -No Diagnosis/symptom? @ -Acute abdominal pain, acute intra-abdominal abscess versus hematoma versus seroma, status post hysterectomy Acute, or Chronic, or Acute on Chronic? @ -Acute Uncomplicated (without systemic symptoms) or Complicated (systemic symptoms)? @ -Complicated Side effects of treatment? @ -No Exacerbation, Progression, or Severe Exacerbation? @ -No Poses a threat to life or bodily function? How? (Chest pain, [place], [place], pneumonia, PE, COPD, DKA, ARF, appy, cholecystitis, CVA, Diverticulitis, Homicidal, Suicidal, threat to staff... and all critical care pts) @ -No - Lab Data Result diagrams: 12/22/24 04:55 12/22/24 04:55 Lab Results 12/20/24 12/20/24 12/20/24 Range/Units 22:27 22:27 22:27 WBC 8.53 (4.50-10.00) 10*3/uL RBC 3.96 L (4.10-5.20) 10*6/uL Hgb 12.9 (12.0-15.0) g/dL Hct 36.5 L (37.2-46.3) % MCV 92.2 (80.0-97.0) fL MCH 32.6 H (27.0-32.0) pg MCHC 35.3 (32.0-37.0) g/dL Plt Count 414 (140-440) 10*3/uL MPV 9.6 (9.5-12.2) fL Immature Gran % (Auto) 0.4 % Neutrophils % 71.0 % Lymphocytes % 16.5 % Monocytes % 9.0 % Eosinophils % 2.6 % Basophils % 0.5 % Immature Gran # 0.03 (0.00-0.04) 10*3/uL Neutrophils # 6.06 (1.80-7.70) 10*3/uL Lymphocytes # 1.41 (0.90-5.00) 10*3/uL Monocytes # 0.77 (0.20-1.00) 10*3/uL Eosinophils # 0.22 (0.04-0.35) 10*3/uL Basophils # 0.04 (0.00-0.10) 10*3/uL Sodium 136 L (137-145) mmol/L Potassium 4.1 (3.5-5.1) mmol/L Chloride 102 (98-107) mmol/L Carbon Dioxide 27 (22-30) mmol/L Anion Gap 7 mmol/L BUN 17 (7-17) mg/dL Creatinine 0.72 (0.52-1.04) mg/dL Est GFR (CKD-EPI)AfAm >90 (>60 ml/min/1.73 sqM) Est GFR (CKD-EPI)NonAf >90 (>60 ml/min/1.73 sqM) Glucose 66 L (74-99) mg/dL Plasma Lactic Acid Tam (0.7-2.0) mmol/L Calcium 9.3 (8.4-10.2) mg/dL Total Bilirubin 0.9 (0.2-1.3) mg/dL AST 24 (14-36) U/L ALT 8 (4-34) U/L Alkaline Phosphatase 63 (38-126) U/L Total Protein 7.2 (6.3-8.2) g/dL Albumin 4.1 (3.5-5.0) g/dL Lipase 51 (23-300) U/L Urine Color Light Yellow Urine Appearance Clear (Clear) Urine pH 5.5 (5.0-8.0) Ur Specific Biddle 1.019 (1.001-1.035) Urine Protein Negative (Negative) Urine Glucose (UA) Negative (Negative) Urine Ketones Negative (Negative) Urine Blood Negative (Negative) Urine Nitrite Negative (Negative) Urine Bilirubin Negative (Negative) Urine Urobilinogen 2.0 (<2.0) mg/dL Ur Leukocyte Esterase Negative (Negative) 12/20/24 Range/Units 22:27 WBC (4.50-10.00) 10*3/uL RBC (4.10-5.20) 10*6/uL Hgb (12.0-15.0) g/dL Hct (37.2-46.3) % MCV (80.0-97.0) fL MCH (27.0-32.0) pg MCHC (32.0-37.0) g/dL Plt Count (140-440) 10*3/uL MPV (9.5-12.2) fL Immature Gran % (Auto) % Neutrophils % % Lymphocytes % % Monocytes % % Eosinophils % % Basophils % % Immature Gran # (0.00-0.04) 10*3/uL Neutrophils # (1.80-7.70) 10*3/uL Lymphocytes # (0.90-5.00) 10*3/uL Monocytes # (0.20-1.00) 10*3/uL Eosinophils # (0.04-0.35) 10*3/uL Basophils # (0.00-0.10) 10*3/uL Sodium (137-145) mmol/L Potassium (3.5-5.1) mmol/L Chloride (98-107) mmol/L Carbon Dioxide (22-30) mmol/L Anion Gap mmol/L BUN (7-17) mg/dL Creatinine (0.52-1.04) mg/dL Est GFR (CKD-EPI)AfAm (>60 ml/min/1.73 sqM) Est GFR (CKD-EPI)NonAf (>60 ml/min/1.73 sqM) Glucose (74-99) mg/dL Plasma Lactic Acid Tam 0.6 L (0.7-2.0) mmol/L Calcium (8.4-10.2) mg/dL Total Bilirubin (0.2-1.3) mg/dL AST (14-36) U/L ALT (4-34) U/L Alkaline Phosphatase (38-126) U/L Total Protein (6.3-8.2) g/dL Albumin (3.5-5.0) g/dL Lipase (23-300) U/L Urine Color Urine Appearance (Clear) Urine pH (5.0-8.0) Ur Specific Biddle (1.001-1.035) Urine Protein (Negative) Urine Glucose (UA) (Negative) Urine Ketones (Negative) Urine Blood (Negative) Urine Nitrite (Negative) Urine Bilirubin (Negative) Urine Urobilinogen (<2.0) mg/dL Ur Leukocyte Esterase (Negative) Disposition Clinical Impression: Abdominal pain, S/P hysterectomy, Fever Disposition: ADMITTED IP TO THIS [facility] Condition: Stable Is patient prescribed a controlled substance at d/c from ED?: No Time of Disposition: 02:04 Decision to Admit Reason: Admit from EC Decision Date: 12/21/24 Decision Time: 02:04
[2024-12-20] MEDS: LACTATED RINGERS 1,000 ML IV SCH (23:44)
--- NOTE | 2024-12-21 00:57 | CT ---
EXAM: CT Abdomen and Pelvis With Intravenous Contrast CLINICAL HISTORY: ITS.REASON CT Reason: post op fever TECHNIQUE: Axial computed tomography images of the abdomen and pelvis with intravenous contrast. CTDI is 15.6 mGy and DLP is 824 mGy-cm. This CT exam was performed using one or more of the following dose reduction techniques: automated exposure control, adjustment of the mA and/or kV according to patient size, and/or use of iterative reconstruction technique. COMPARISON: No relevant prior studies available. FINDINGS: Lung bases: Unremarkable. No mass. No consolidation. ABDOMEN: Liver: Unremarkable. No mass. Gallbladder and bile ducts: Contracted gallbladder. No calcified stones. No ductal dilation. Pancreas: Unremarkable. No mass. No ductal dilation. Spleen: Unremarkable. No splenomegaly. Adrenals: Unremarkable. No mass. Kidneys and ureters: Unremarkable. No solid mass. No hydronephrosis. Stomach and bowel: Unremarkable. No obstruction. No mucosal thickening. PELVIS: Appendix: No findings to suggest acute appendicitis. Bladder: Unremarkable. No mass. Reproductive: Hysterectomy. Indeterminate collection in the pelvis, which measures approximately 9.6 x 6.8 cm, located superior to the urinary bladder. Postoperative abscess not excluded. Recommend pelvic ultrasound and gynecology evaluation. Adjacent cystic lesion measures 2.5 x 1.9 cm. ABDOMEN and PELVIS: Intraperitoneal space: Unremarkable. No free air. No significant fluid collection. Bones/joints: No acute fracture. No dislocation. Soft tissues: Fat-containing umbilical hernia measures approximately 2. 3 x 2.2 cm. Vasculature: Unremarkable. No abdominal aortic aneurysm. Lymph nodes: Unremarkable. No enlarged lymph nodes. IMPRESSION: Hysterectomy. Indeterminate collection in the pelvis, which measures approximately 9.6 x 6.8 cm, located superior to the urinary bladder. Postoperative abscess not excluded. Recommend pelvic ultrasound and gynecology evaluation. Adjacent cystic lesion measures 2.5 x 1.9 cm.
[2024-12-21] MEDS ORDERED: IBUPROFEN 400 MG TAB PO PRN (02:04)
[2024-12-21] MEDS ORDERED: NALOXONE 0.4 MG/ML 1 ML VIAL IV PRN (02:04)
[2024-12-21] MEDS ORDERED: ACETAMINOPHEN TAB 325 MG TAB PO PRN (02:04)
[2024-12-21 03:37] LABS: Glucose,Whole Blood 100 mg/dL (70-110)
[2024-12-21] MEDS: PIPERACILLIN-TAZOBACTAM 3.375 GM in SODIUM CHLORIDE 0.9% 100 ML IVPB SCH ×2 (04:10→12:14)
[2024-12-21] MEDS: SODIUM CHLORIDE 0.9% 1,000 ML IV SCH (04:11)
--- NOTE | 2024-12-21 07:43 | US ---
EXAMINATION TYPE: US pelvis complete transvag DATE OF EXAM: 12/21/2024 COMPARISON: NONE CLINICAL INDICATION: Female, 29 years old s/p hysterectomy, intra-abdominal fluid collection; fever a nd pain post hyst and single oophorectomy 15 days ago TECHNIQUE: TA. Transabdominal grayscale sonographic images of the pelvis were acquired. Doppler imaging: Not performed. FINDINGS: Date of LMP: hysterectomy EXAM MEASUREMENTS: Uterus: Surgically absent Endometrial Stripe: Surgically absent Right Ovary: not seen Left Ovary: 3.5 x 3.0 x 2.6cm 1. Uterus: Surgically absent 8.0 x 9.0 x 6.6cm midline complex cystic mass situated behind the blad gisella as noted on CT. No internal vascularity. 2. Endometrium: Surgically absent 3. Right Ovary: Obscured by overlying bowel gas versus surgically absent 4. Left Ovary: possible ovary seen within lt adnexa versus extension of midline mass, there is a sim ple cyst like structure noted = 2.7 x 2.7 x 1.5cm - as noted on CT 5. Bilateral Adnexa: mild free fluid seen 6. Posterior cul-de-sac: wnl IMPRESSION: 1. Complex cystic collection measuring up to 9.0 cm possibly focal hematoma at the hysterectomy site. Correlate with findings on pathology and any potential pathologic abnormality of the resected ovary. If no intervention, clinical and imaging follow-up to ensure resolution. 2. 2.7 cm simple cyst in the left adnexa could represent a dominant follicle of the left ovary. Corre late as to which ovary was removed. This can also be reassessed at follow-up. 3. Mild pelvic free fluid. O-RADS 2021 [email or web address] [facility], , 12/21/2024 7:41 AM
[2024-12-21] MEDS: SERTRALINE 100 MG TAB PO SCH (08:02)
[2024-12-21] MEDS: IBUPROFEN 600 MG TAB PO PRN (08:02)
[2024-12-21 08:21] VITALS: RESP 16
--- NOTE | 2024-12-21 09:56 | P.HPOB ---
History of Present Illness H&P Date: 12/21/24 Chief Complaint: Postop vaginal cuff abscess 29-year-old male that presents to the emergency department with complaints of lower abdominal cramping. Patient is approximately 2 weeks status post robotic assisted vaginal hysterectomy with Dr. Pringle at [facility] [place]. Patient states she did have her postop appointment without complication. She was feeling well until yesterday when the cramping began. She notes regular bowel movements, no urinary complaints, no vaginal bleeding. On CT scan a 9 cm pelvic fluid collection was appreciated on ultrasound contin ued visualization of fluid collection, complex in nature. Patient states she did have a fever at home took ibuprofen prior to presenting Emergency Department. Patient has been afebrile since admitted. Review of Systems Constitutional: Reports fever, Denies chills, Denies fatigue Ears, nose, mouth and throat: Denies headache Cardiovascular: Denies leg edema Respiratory: Denies dyspnea Gastrointestinal: Denies constipation, Denies diarrhea, Denies nausea, Denies vomiting Genitourinary: Reports as per HPI, Denies Past Medical History Past Medical History: No Reported History Additional Past Medical History / Comment(s): C/S x4, endometriosis, heart murmu r as child, total hysterectomy, ovarian cancer 3 years ago History of Any Multi-Drug Resistant Organisms: None Reported Past Surgical History: Section, Hysterectomy Additional Past Surgical History / Comment(s): C-SEC X 3 and wisdom teeth removal, left ovary removal Past Anesthesia/Blood Transfusion Reactions: No Reported Reaction Additional Past Anesthesia/Blood Transfusion Reaction / Comment(s): n/v with anesthesia Past Psychological History: ADD/ADHD, Anxiety, Bipolar, Depression Additional Psychological History / Comment(s): Bipolar type 2 Smoking Status: Vaper Past Alcohol Use History: None Reported Additional Past Alcohol Use History / Comment(s): Pt reports smoking 1/2 pack per day Past Drug Use History: None Reported - Past Family History Mother Family Medical History: No Reported History Medications and Allergies Home Medications Medication Instructions Recorded Confirmed Type Lisdexamfetamine Dimesylate 60 mg PO QAM 12/21/24 12/21/24 History [Vyvanse] Sertraline [Zoloft] 100 mg PO DAILY 12/21/24 12/21/24 History Allergies Allergy/AdvReac Type Severity Reaction Status Date / Time latex Allergy Rash/Hives Verified 12/20/24 21:10 venom-honey bee Allergy Anaphylaxis Verified 12/20/24 21:10 [bee venom (honey bee)] cephalexin monohydrate AdvReac Nausea & Verified 12/20/24 21:10 [From Keflex] Vomiting Exam Osteopathic Statement: *. No significant issues noted on an osteopathic stru ctural exam other than those noted in the History and Physical/Consult. Vital Signs Temp Pulse Pulse Resp BP BP Pulse Ox 12/21/24 07:45 99.2 F 74 16 114/69 97 12/21/24 04:15 99.9 F H 76 18 114/71 96 12/21/24 03:41 99.2 F 74 16 123/74 100 12/20/24 22:48 98.3 F 72 18 121/73 99 12/20/24 21:06 98.2 F 104 H 17 132/83 99 Intake and Output 12/20/24 12/21/24 12/21/24 22:59 06:59 14:59 Intake Total 0 Balance 0 Intake: Oral 0 Other: Weight 79.379 kg 79.379 kg Targeted physical exam is performed this date in general is well-nourished well- developed female in no acute distress, resting comfortably in bed, breathing appears nonlabored, abdomen is soft Results Result Diagrams: 12/20/24 22:27 12/20/24 22:27 Abnormal Lab Results - Last 24 Hours (Table) 12/20/24 12/20/24 12/20/24 Range/Units 22:27 22:27 22:27 RBC 3.96 L (4.10-5.20) 10*6/uL Hct 36.5 L (37.2-46.3) % MCH 32.6 H (27.0-32.0) pg Sodium 136 L (137-145) mmol/L Glucose 66 L (74-99) mg/dL Plasma Lactic Acid Tam 0.6 L (0.7-2.0) mmol/L Assessment and Plan (1) Pelvic abscess Current Visit: Yes Status: Acute Code(s): JPA7004 - SNOMED Code(s): 035807730 (2) Abdominal pain Current Visit: Yes Status: Acute Code(s): R10.9 - UNSPECIFIED ABDOMINAL PAIN SNOMED Code(s): 38315237 (3) S/P hysterectomy Current Visit: Yes Status: Acute Code(s): Z90.710 - ACQUIRED ABSENCE OF BOTH CERVIX AND UTERUS SNOMED Code(s): 974609643 Plan: Admit to hospital IV antibiotics, Zosyn for 24 hours, if afebrile I will plan discharge home with Augmentin and follow-up with Dr. Pringle. P.o. ibuprofen as needed for pain P.o. Tylenol as needed for fever greater than 100.4 CBC in a.m.
[2024-12-22 05:10] LABS: Basophils # (A) 0.04 10*3/uL (0.00-0.10); Basophils % (A) 0.4 %; Eosinophils # (A) 0.25 10*3/uL (0.04-0.35); Eosinophils % (A) 2.3 %; HCT 32.9 % (37.2-46.3); HGB 11.1 g/dL (12.0-15.0); Lymphocytes # (A) 1.56 10*3/uL (0.90-5.00); Lymphocytes % (A) 14.4 %; MCH 31.8 pg (27.0-32.0); MCHC 33.7 g/dL (32.0-37.0); MCV 94.3 fL (80.0-97.0); Mean Platelet Volume 9.8 fL (9.5-12.2); Monocytes # (A) 0.98 10*3/uL (0.20-1.00); Monocytes % (A) 9.1 %; Neutrophils # (A) 7.95 10*3/uL (1.80-7.70); Neutrophils % (A) 73.6 %; Platelet Count 375 10*3/uL (140-440); RBC 3.49 10*6/uL (4.10-5.20); RDW 12.7 % (11.5-14.5)
[2024-12-22 05:27] LABS: African American GFR (CKD) >90 (>60 ml/min/1.73 sqM); Anion Gap 5 mmol/L; Blood Urea Nitrogen 9 mg/dL (7-17); Calcium 8.8 mg/dL (8.4-10.2); Carbon Dioxide 26 mmol/L (22-30); Chloride 107 mmol/L (98-107); Glucose 114 mg/dL (74-99); Non-African American GFR(CKD) >90 (>60 ml/min/1.73 sqM); Potassium 4.2 mmol/L (3.5-5.1); Sodium 138 mmol/L (137-145)
[2024-12-22 10:01] VITALS: BP 105/67; PULSE 72; TEMP 98.3
--- NOTE | 2024-12-22 10:36 | P.DS ---
Providers Date of admission: 12/21/24 02:06 Expected date of discharge: 12/22/24 Attending physician: Donna Dumont Primary care physician: Stated None Hospital Course: Ms. Barnes is a 29 year old who is 2 weeks post-op from a Robotic Assisted Total Laparoscopic Hysterectomy with Dr. Pringle who presented with pelvic pain, subjective fevers at home and was found to have a 9 centimeter hematoma versus vaginal cuff abscess on imaging. She was started on IV Zosyn every 8 hours and has now had 3 doses. Her white count on arrival was 8. This morning it has slightly increased to 10.8. I gave the patient the option of staying here for another few doses of IV antibiotics, but she strongly prefers to be discharged home with oral antibiotics. Her pain has resolved and she has remained afebrile since admission. She has scheduled an outpatient follow up appointment with Dr. Pringle this Tuesday. She is counseled that she needs to return to the ER for severe pelvic pain, nausea/vomiting, and/or fevers. The patient is agreeable to this plan. Will send Augmentin to her pharmacy. Patient Condition at Discharge: Stable Plan - Discharge Summary New Discharge Prescriptions: New Amoxic-Pot Clav 875-125Mg [Augmentin 875-125] 1 tab PO Q12HR 7 Days #14 tab No Action Sertraline [Zoloft] 100 mg PO DAILY Lisdexamfetamine Dimesylate [Vyvanse] 60 mg PO QAM Discharge Medication List Lisdexamfetamine Dimesylate [Vyvanse] 60 mg PO QAM 12/21/24 [History] Sertraline [Zoloft] 100 mg PO DAILY 12/21/24 [History] Amoxic-Pot Clav 875-125Mg [Augmentin 875-125] 1 tab PO Q12HR 7 Days #14 tab 12/22/24 [Rx] Follow up Appointment(s)/Referral(s): None,Stated [Primary Care Provider] - 1-2 days Discharge Disposition: HOME SELF-CARE
== END 2024-12-22 11:16 | disposition home or self-care (01) ==
LOC: EC 21:05 → 4FBP 12-21 02:06
PROVIDERS: ADMIT Obstetrics & Gynecology Obstetrics; ATTEND Obstetrics & Gynecology Obstetrics
DX: R10.2 Pelvic and perineal pain (principal); R50.9 Fever, unspecified; N73.9 Female pelvic inflammatory disease, unspecified; F17.210 Nicotine dependence, cigarettes, uncomplicated; F31.81 Bipolar II disorder; Z88.1 Allergy status to other antibiotic agents; Z91.040 Latex allergy status; Z90.710 Acquired absence of both cervix and uterus; Z79.899 Other long term (current) drug therapy; Z85.43 Personal history of malignant neoplasm of ovary
CPT/HCPCS: 96366 ×2; 96365; 96375; 99285; 36415; 80053; 80048; 83605; 83690; 85025 ×2; 81003; 87040; 76856; 74177; G0378 ×2; J2543 ×2; J1885; Q9967